=== PATIENT | male | born 1975 | race Caucasian/White ===

== ENCOUNTER 2021-07-15 19:44 | Inpatient (IN) | payer MEDICAID, SELFPAY ==
[2021-07-15] VITALS (9 sets, daily range): BP systolic 167–198; BP diastolic 107–120; PULSE 112–127; RESP 21–29; TEMP 36.9–39.1; O2SAT 94–97; BMI 22.5; BMI 24.1
--- NOTE | 2021-07-15 20:32 | ECG_ITS ---
APPROVED REPORT Exam: Resting ECG HR:121 bpm ECG Measurements Heart Rate 121 AXES IA 118 P 61 QRSd 100 QRS 9 QT 330 T 133 QTc 468 Conclusion Sinus tachycardia with occasional premature ventricular complexes Possible Left atrial enlargement T wave abnormality, consider lateral ischemia Abnormal ECG Electronically signed by : Hector Ngo MD 07/16/2021 08:31:27
--- NOTE | 2021-07-15 20:33 | XR_ITS ---
PROCEDURE INFORMATION: Exam: XR Chest Exam date and time: 07/15/2021 8:33 PM Age: 46 years old Clinical indication: Shortness of breath and other: Chest pain and SOB; Additional info: Cp with SOA TECHNIQUE: Imaging protocol: XR of the chest. Views: 2 views. COMPARISON: No relevant prior studies available. FINDINGS: Lungs: Central opacities with peribronchial cuffing, seen to advantage on the lateral chest radiograph suggest viral process versus reactive airways without convincing consolidation. Pleural spaces: Unremarkable. No pleural effusion. No pneumothorax. Heart/Mediastinum: Unremarkable. No cardiomegaly. Vasculature: LAD stents overlie the cardiac silhouette. Bones/joints: Unremarkable. IMPRESSION: Central opacities with peribronchial cuffing, seen to advantage on the lateral chest radiograph suggest viral process versus reactive airways without convincing consolidation.
[2021-07-15 20:45] LABS: Chloride 98 mmol/L (98-107)
[2021-07-15 20:46] LABS: Potassium 4.1 mmoL/L (3.5-5.1); Sodium 133 mmol/L (136-145)
[2021-07-15 20:47] LABS: Influenza A, PCR Not Detected (NotDetected); Influenza B, PCR Not Detected (NotDetected)
[2021-07-15 20:48] LABS: Blood Urea Nitrogen 25 mg/dl (9-20); Creatinine Clearance Estimated 56 mL/min (50-200); Estimated Glomerular Filt Rate 38 ml/min (>60); GFR (African American) 46 ML/MIN (>60)
[2021-07-15 20:49] LABS: Anion Gap 9.1 mEq/L (5-15); Carbon Dioxide 30 mmol/L (22.0-30.0); Glucose 128 mg/dl (74-100)
--- NOTE | 2021-07-15 20:50 | PC.NURSE ---
notified of GFR and inability to have CTA PE
[2021-07-15 20:52] LABS: Basophils # 0.1 K/mm3 (0-0.2); Basophils % 1.2 % (0.1-2.0); Eosinophils % 0.2 % (0.1-12.0); Hematocrit 29.8 % (42.0-52.0); Hemoglobin 9.8 g/dL (14.1-18.0); Lymphocytes # 1.1 K/mm3 (0.7-4.5); Lymphocytes % 16.3 % (10-50); Mean Corpuscular HGB Conc 32.8 g/dL (31.8-35.4); Mean Corpuscular Hemoglobin 28.6 pg (27.0-31.2); Mean Corpuscular Volume 87.2 fl (80-94); Mean Platelet Volume 9.8 fl (7.4-10.4); Monocytes # 0.8 K/mm3 (0.1-1.0); Monocytes % 11.5 % (1.7-9.3); Neutrophils % 70.8 % (37.0-80.0); Platelet Count 223 K/mm3 (142-424); Red Blood Count 3.42 M/mm3 (4.60-6.20); Red Cell Distribution Width 15.4 % (11.5-17.5)
[2021-07-15 20:59] LABS: NT Pro Brain Natriuretic Pep. 9640 pg/mL (0-125)
[2021-07-15 21:09] LABS: Troponin I 0.32 ng/ml (0.00-0.034)
--- NOTE | 2021-07-15 21:09 | PC.NURSE ---
notified of critical troponin
[2021-07-15 21:24] LABS: Coronavirus 19, PCR Detected (NotDetected)
--- NOTE | 2021-07-15 21:48 | PC.NURSE ---
MD Rizo would like a 2hr troponin.
--- NOTE | 2021-07-15 21:57 | PC.NURSE ---
family calling for an update- Josefa Jackson, pt states it is ok to update her.
[2021-07-15 22:37] LABS: Troponin I 0.34 ng/ml (0.00-0.034)
--- NOTE | 2021-07-15 23:20 | PC.NURSE ---
lime supervisor notified for the need bed assignment.
--- NOTE | 2021-07-15 23:58 | PC.NURSE ---
patient up to floor via wheel chair at this time.
[2021-07-16] VITALS (13 sets, daily range): BP systolic 133–167; BP diastolic 78–92; PULSE 74–113; RESP 16–22; TEMP 36.6–37.8; O2SAT 92–100; BMI 24.1
--- NOTE | 2021-07-16 01:10 | HMH.EDGENADL ---
ED Disposition Clinical Impression: COVID, Acute dyspnea, KAREN (acute kidney injury) Chest pain Qualifiers: Chest pain type: unspecified Qualified Code(s): R07.9 - Chest pain, unspecified Disposition: Admitted As Inpatient Condition on Discharge: Fair - Critical Care Critical Care Time: No Attestation: On 07/15/21, the high probability of a clinically significant, sudden or life threatening deterioration of the following system(s) required my full and direct attention, intervention and personal management. The time I documented below is in addition to time spent performing reported procedures but includes the following listed in this critical care notation. Medical Decision Making - Medical Records Medical records reviewed: Yes: I reviewed the patient's medical records. - Jose Alberto Inquiry Pt receiving controlled substance: No Vital Signs: 07/15/21 19:46 07/15/21 20:30 07/15/21 21:00 Temperature 98.4 F Temperature Source Oral Pulse Rate 121 H 120 H Pulse Rate [Right] 127 H Respiratory Rate 29 H 22 23 Blood Pressure 195/118 H 195/116 H Blood Pressure [Right Arm] 198/112 H Blood Pressure Mean Blood Pressure Mean [Right Arm] 140 Blood Pressure Source Manual Cuff/ Auscultation Blood Pressure Source [Right Arm] Automatic Cuff 02 Sat by Pulse Oximetry 96 94 L 97 Oxygen Delivery Method Room Air Room Air Room Air 07/15/21 21:30 07/15/21 22:00 07/15/21 22:38 Temperature Temperature Source Pulse Rate 121 H 116 H 118 H Pulse Rate [Right] Respiratory Rate 24 25 H 25 H Blood Pressure 196/119 H 196/118 H 177/112 H Blood Pressure [Right Arm] Blood Pressure Mean 137 133 Blood Pressure Mean [Right Arm] Blood Pressure Source Blood Pressure Source [Right Arm] 02 Sat by Pulse Oximetry 94 L 96 95 Oxygen Delivery Method Room Air Room Air Room Air 07/15/21 23:00 07/15/21 23:30 07/15/21 23:37 Temperature 102.3 F H Temperature Source Oral Pulse Rate 117 H 115 H 112 H Pulse Rate [Right] Respiratory Rate 26 H 21 21 Blood Pressure 188/120 H 177/110 H 167/107 H Blood Pressure [Right Arm] Blood Pressure Mean Blood Pressure Mean [Right Arm] Blood Pressure Source Blood Pressure Source [Right Arm] 02 Sat by Pulse Oximetry 94 L 95 Oxygen Delivery Method Room Air Room Air Room Air - Lab Data Lab results reviewed: Yes: I reviewed the patient's lab results. Lab Results 07/15/21 19:56: WBC 7.0, RBC 3.42 L, Hgb 9.8 L, Hct 29.8 L, MCV 87.2, MCH 28.6, MCHC 32.8, RDW 15.4, Plt Count 223, MPV 9.8, Neut % (Auto) 70.8, Lymph % (Auto) 16.3, [facility] % (Auto) 11.5 H, Eos % (Auto) 0.2, Baso % (Auto) 1.2, Neut # (Auto) 5.0, Lymph # (Auto) 1.1, [facility] # (Auto) 0.8, Eos # (Auto) 0.0, Baso # (Auto) 0.1 07/15/21 19:56: Sodium 133 L, Potassium 4.1, Chloride 98, Carbon Dioxide 30, Anion Gap 9.1, BUN 25 H, Creatinine 1.90 H, Estimated Creat Clear 56, Estimated GFR 38 L, Est GFR ( Amer) 46 L, Glucose 128 H, Calcium 8.0 L, Troponin I 0.32 H, NT-Pro-B Natriuret Pep 9640 H 07/15/21 20:07: SARS-CoV-2 (PCR) Detected A, Influenza A Untype (PCR) Not detected, Influenza Type B (PCR) Not detected 07/15/21 22:07: Troponin I 0.34 H Result diagrams: 07/15/21 19:56 07/15/21 19:56 Orders (Tests/Meds): ED MEDICATIONS Generic Name Dose Route Start Last Admin Trade Name Jelena PRN Reason Stop Dose Admin Aspirin 81 mg 07/16/21 09:00 Aspirin 81mg Chewable Tablet PO 08/15/21 08:59 DAILY JULIAN Furosemide 40 mg 07/16/21 09:00 Furosemide 40 Mg Tablet PO 08/15/21 08:59 BID JULIAN Gabapentin 600 mg 07/16/21 09:00 Gabapentin 300mg Capsule PO 08/15/21 08:59 TID JULIAN Insulin Glargine 50 unit 07/16/21 21:00 Insulin Glargine 100 Units/Ml 3ml Flexpen SQ 08/15/21 20:59 HS JULIAN Isosorbide Mononitrate 60 mg 07/16/21 09:00 Isosorbide [facility] 60mg Tab.Er.24h PO 08/15/21 08:59 DAILY JULIAN Loratadine 10 mg 07/16/21 09:00 Loratadine 10mg Tablet PO
--- NOTE | 2021-07-16 06:18 | PC.NURSE ---
Upon pt arriving to floor, this RN was made aware of pt temp in ER of 102.3 and was administered 1g Tylenol with favorable results. Pt temp rechecked and was 99.0. Pt 0400 temp was 100.0. Room temp was turned down and extra blankets were taken off. After 1 hour, temp was retaken and was 98.5. Pt tolerating RA with sats in mid 90s. 2+ edema noted to bilateral feet. Pillow was placed underneath to elevate. No complaints voiced to staff. Pt has rested well since arriving to floor.
[2021-07-16 07:25] LABS: Basophils # 0.1 K/mm3 (0-0.2); Eosinophils % 0.1 % (0.1-12.0); Hematocrit 35.3 % (42.0-52.0); Lymphocytes # 1.8 K/mm3 (0.7-4.5); Lymphocytes % 26.5 % (10-50); Mean Corpuscular HGB Conc 33.6 g/dL (31.8-35.4); Mean Corpuscular Hemoglobin 28.1 pg (27.0-31.2); Mean Corpuscular Volume 83.7 fl (80-94); Mean Platelet Volume 9.7 fl (7.4-10.4); Monocytes # 0.7 K/mm3 (0.1-1.0); Monocytes % 10.8 % (1.7-9.3); Neutrophils # 4.1 K/mm3 (1.8-7.8); Neutrophils % 61.5 % (37.0-80.0); Platelet Count 246 K/mm3 (142-424); Red Blood Count 4.22 M/mm3 (4.60-6.20); Red Cell Distribution Width 15.2 % (11.5-17.5); White Blood Count 6.6 K/mm3 (4.8-10.8)
[2021-07-16 07:43] LABS: Alanine Aminotransferase 21 U/L (12-78); Albumin Level 2.5 g/dl (3.5-5.0); Albumin/Globulin Ratio 0.8 (1.1-1.8); Alkaline Phosphatase 116 U/L (38-126); Anion Gap 6.5 mEq/L (5-15); Aspartate Amino Transferase 54 U/L (17-59); Bilirubin,Total 0.2 mg/dl (0.2-1.3); Blood Urea Nitrogen 26 mg/dl (9-20); Calcium 8.4 mg/dl (8.4-10.2); Carbon Dioxide 28 mmol/L (22.0-30.0); Chloride 102 mmol/L (98-107); Creatinine Clearance Estimated 68 mL/min (50-200); Estimated Glomerular Filt Rate 43 ml/min (>60); GFR (African American) 52 ML/MIN (>60); Glucose 142 mg/dl (74-100); Potassium 3.5 mmoL/L (3.5-5.1); Sodium 133 mmol/L (136-145); Total Protein,Serum 5.5 g/dl (6.3-8.2)
[2021-07-16 07:45] LABS: Hemoglobin 11.7 g/dL (14.1-18.0)
[2021-07-16 08:37] LABS: Troponin I 0.47 ng/ml (0.00-0.034)
--- NOTE | 2021-07-16 08:41 | HMH.HP ---
*Admission Date: 07/16/21 *Chief complaint: Weakness *History of present illness: Butch is a 46-year-old white male with a history of coronary artery disease, congestive heart failure, hypertension, and diabetes mellitus. His PCP is Dr. Estrada as his PCP and Dr. Palacios as his community integration specialist. States he has 20 coronary stents with 4 stents being placed as recently as 3 months ago. He presented to the emergency room last evening with complaints of chest pain and shortness of breath. This morning he tells me he came to the hospital because of a 2-day history of increasing malaise, generalized weakness, and cough. The chest pain he had last evening was not typical of angina he has had in the past. On work-up in the emergency room, he was found to be Covid positive with a normal white count. His chest x-ray showed some peribronchial cuffing consistent with a viral process. O2 sats 100% on room air. In addition his cardiac enzymes were mildly elevated x2 without significant delta. His creatinine was also found to be elevated at 1.9. He apparently has no history of chronic kidney disease. He has had no recent vomiting or diarrhea but appetite has been diminished. He denies any sick contacts. [facility] History Medical History: Reports:: Congestive Heart Failure, Coronary Artery Disease, Hypertension *Have you ever received a pneumonia vaccine?: No *Have you received a flu vaccine this season?: No Other Medical History: Other Surgeries: Yes: Angioplasty (Most recently 3 months ago), Other (Vasectomy, amputation of left third toe) Amputation: Yes (left middle toe) - *Social History Last grade of school completed: 11th or 12th Smoking Status: Never smoker Alcohol Intake: never *Occupational Status:: unemployed Household Members: children *Travel in the last 8 weeks: None - Psychiatric History Pschychiatric History:: Family Hx:: No significant family history Review of Systems - Constitutional Reports lack of energy, Reports weakness - Eyes Denies blurry vision, Denies loss of vision - ENT Denies abnormal hearing, Denies dizziness, Denies nasal congestion - *Cardiovascular Reports chest pain, Reports shortness of breath - *Respiratory Reports cough, Reports shortness of breath, Denies coughing up blood - *Gastrointestinal Denies abdominal pain, Denies change in stools, Denies nausea, Denies vomiting - *Genitourinary Denies difficulty urinating, Denies urinary frequency - *Musculoskeletal Denies joint swelling, Denies body aches - Integumentary/Breasts Denies change in skin color, Denies yellowing of the skin - *Neurologic Reports headache(s), Denies dizziness - Psychiatric Denies confusion, Denies depression - Endocrine Denies excessive sweating, Denies increased urination - Hematologic/Lymphatic Denies easy bruising - Allergic/Immunologic Denies itchy eyes, Denies wheezing Meds Home Medications Medication Instructions Recorded Confirmed Type Aspirin [Aspirin 81mg chewable 81 mg PO DAILY 07/15/21 07/15/21 History tab] Ezetimibe [Zetia] 10 mg PO DAILY 07/15/21 07/15/21 History Furosemide [Furosemide 40MG tAB*] 40 mg PO BIDL 07/15/21 07/16/21 History Insulin Glargine,Hum.rec.anlog 50 units SQ HS 07/15/21 07/15/21 History [Lantus Solostar 100 Units/mL 3mL flexpen] Isosorbide Mononitrate [Isosorbide 60 mg PO DAILY 07/15/21 07/15/21 History Mononitrate ER] Loratadine [Allergy] 10 mg PO DAILY 07/15/21 07/15/21 History Metformin HCl [Metformin 1000mg 1,000 mg PO BID 07/15/21 07/15/21 History Tablets] Metoprolol Succinate [Metoprolol 100 mg PO DAILY 07/15/21 07/15/21 History Succinate 100mg Tablet*] Nitroglycerin [Nitrostat 0.4mg SL 0.4 mg SL NEEDED PRN 07/15/21 07/15/21 History Tablet] Rosuvastatin Calcium [Crestor 40mg 40 mg PO DAILY 07/15/21 07/15/21 History Tablets] Ticagrelor [Brilinta 90mg 90 mg PO BID 07/15/21 07/15/21 History Tablet] Gabapentin [Neur
--- NOTE | 2021-07-16 08:41 | PC.NURSE ---
reported troponin to
--- NOTE | 2021-07-16 09:11 | P.CONPHA_ITS ---
[facility] Pharmacy VTE Monitoring - Patient Demographics Admission date: 07/15/21 Report Date: 07/16/21 Time: 09:11 Allergies/Adverse Reactions: Patient Allergies No Known Allergies Allergy (Verified 07/15/21 19:55) Height: 1.93 m Weight: 90.045 kg Patient Problems: Current Active Problems COVID (Acute) Chest pain (Acute) Acute dyspnea (Acute) KAREN (acute kidney injury) (Acute) - VTE Risk Labs: VTE Related Lab Results Hgb 11.7 g/dL (14.1-18.0) L D 07/16/21 07:00 Hct 35.3 % (42.0-52.0) L 07/16/21 07:00 Plt Count 246 K/mm3 (142-424) 07/16/21 07:00 BUN 26 mg/dl (9-20) H 07/16/21 07:00 Creatinine 1.70 mg/dl (0.66-1.25) H 07/16/21 07:00 Estimated Creat Clear 68 mL/min (50-200) 07/16/21 07:00 Was VTE Risk Assessment Performed: No Clinical Trial Participant: No - Prophylaxis VTE Prophylaxis Ordered?: Yes Types of VTE Prophylaxis: TEDS Knee High, Pharmacological Location of Applied Device: Bilateral Lower Extremeties Pharmacologic Type: Enoxaparin
--- NOTE | 2021-07-16 09:19 | HMH.PHAINT ---
MEDICATION RECONCILIATION COMPLETE USING EXTERNAL PHARMACY FILL HISTORY.
[2021-07-16 21:15] LABS: POC Glucose,Bedside 167 (70-110)
[2021-07-17] VITALS (8 sets, daily range): BP systolic 137–168; BP diastolic 73–99; PULSE 51–100; RESP 16–18; TEMP 36.4–37.7; O2SAT 94–99; BMI 24.1
--- NOTE | 2021-07-17 03:46 | PC.NURSE ---
MD Baugh notified that pt meets criteria for sepsis due to new placement of Bipap. No new orders at time. Pt is currently resting in bed. She is tolerating Bipap. Will continue to monitor.
[2021-07-17 06:52] LABS: POC Glucose,Bedside 103 (70-110)
--- NOTE | 2021-07-17 06:57 | PC.NURSE ---
pt a&ox4. remains on RA. c/o SOA after ambulating to the bathroom. requested PRN breathing treatment. reports it was effective. c/o pain in lower abdomen that was a [address] Baugh gave an order for Toradol 15mg IV once. upon reassessment pt reports decreased pain and that he was able to rest.
--- NOTE | 2021-07-17 08:21 | CA_ITS ---
APPROVED REPORT EXAM: Comprehensive 2D, Doppler, and color-flow Echocardiogram Window Cutter: Keiry Craven RVT Ht: 6 ft 3 in Wt: 198lbs BSA: 2.18 BP: 000/00 mmHg Indications: COVID,CAD,ELEVATED TROP. CHF,DM,HTN,SOA,CP 2D Dimensions LVOT 2.20 cm (M/F) 1.5-2.5 LA Volume 61.90 mL LA Volume Index 28.39 mL/m2 (M/F) 16-34 M-Mode Dimensions RVDd 3.00 cm (0.9-2.6) LA Diam 3.96 cm (1.9-4.0) LVDd 5.35 cm (3.5-5.7) Ao Diam 3.34 cm (2.0-3.7) LVDs 4.05 cm (3.5-5.7) IVSd 0.98 cm (0.6-1.1) PWd 1.03 cm (0.6-1.1) EF (Teich) 47.90% FS 24.30% EDV (Teich) 138.30 mL TAPSE 1.61 (<1.7) ESV (Teich) 72.10 mL LV Diastology E Decel Time 150.00 (160-240 msec) E/A Ratio 1.7 MED E' 5.40 (< 7 cm/sec) E'/MED E' Ratio 15.26 (>14) LAT E' 10.50 (<10 cm/sec) E/LAT E' Ratio 7.85 (>14) Mitral Valve MV E Max Tony. 82.00 (40-130 cm/s) MV A Velocity 49.00 (40-130 cm/s) E/A Ratio 1.69 MV Decel. Time 150.00 (160-240 ms) MV PHT 44.00 ms Pulmonary Valve PV Peak Velocity 91.00 (50-150 cm/s) Tricuspid Valve TR P. Velocity 210.00 cm/s RAP Estimate 10.00 mmHg RVSP 27.60 mmHg Left Ventricle Left atrium is mildly enlarged, left ventricle is normal size, moderate concentric left ventricular hypertrophy, visually estimated ejection fraction 30%, left ventricle is globally hypokinetic. Diastolic parameters are inconclusive. Right Ventricle Right atrium right ventricle mildly enlarged with normal contractility. Aortic Valve Aortic valve is minimally thickened and fibrosed, there is no aortic stenosis or aortic insufficiency. Mitral Valve Mitral valve is grossly normal, there is trace mitral regurgitation. Tricuspid Valve Tricuspid valve grossly normal, there is trace tricuspid regurgitation, tricuspid regurgitation jet velocity is inadequate for calculation of the right ventricular systolic pressure. Pulmonic Valve Pulmonic valve is poorly visualized. Great Vessels Aortic root is normal size. Inferior vena cava normal size with normal inspiratory collapse. Pericardium No significant pericardial effusion noted. Conclusion 1. Mildly enlarged left atrium, normal left ventricular size, moderate concentric left ventricular hypertrophy, visually estimated ejection fraction 30% with left ventricle is globally hypokinetic, diastolic parameters are inconclusive. 2. Trace mitral and tricuspid regurgitation. 3. No significant pericardial effusion noted. 4. Inferior vena cava is normal size with normal inspiratory collapse. Electronically signed by : Germain Mckeon MD 07/17/2021 19:56:11
[2021-07-17 08:27] LABS: Chloride 98 mmol/L (98-107); Sodium 136 mmol/L (136-145)
[2021-07-17 08:28] LABS: Potassium 3.4 mmoL/L (3.5-5.1)
[2021-07-17 08:30] LABS: Anion Gap 8.4 mEq/L (5-15); Blood Urea Nitrogen 31 mg/dl (9-20); Carbon Dioxide 33 mmol/L (22.0-30.0); Creatinine Clearance Estimated 64 mL/min (50-200); Estimated Glomerular Filt Rate 40 ml/min (>60); GFR (African American) 49 ML/MIN (>60)
[2021-07-17 08:31] LABS: Calcium 7.9 mg/dl (8.4-10.2); Glucose 120 mg/dl (74-100)
--- NOTE | 2021-07-17 08:33 | HMH.CNCARD ---
History of Present Illness Consult date: 07/17/21 Requesting physician: Travis Baugh Consult reason: shortness of breath Chief complaint: COVID, elevated troponin, CAD Additional Medical History:: 1. Coronary artery disease A. History of 20 stents over the past several years with most recent LHC approximately [address] Simone Calzada with no stent. B. Ischemic cardiomyopathy with ejection fraction around 35% per Dr. Calzada, at the time of the cardiac cath 3 months ago. C. History of congestive heart failure 2. Hypertension 3. Hyperlipidemia 4. Covid, 07/2021 5. Diabetes mellitus, type II A. Insulin therapy at night History of present illness: Butch is a 46-year-old white male with a history of coronary artery disease, congestive heart failure, hypertension, and diabetes mellitus. His PCP is Dr. Estrada as his PCP and Dr. Palacios as his sliver former. States he has 20 coronary stents with 4 stents being placed as recently as 3 months ago. He presented to the emergency room last evening with complaints of chest pain and shortness of breath. This morning he tells me he came to the hospital because of a 2-day history of increasing malaise, generalized weakness, and cough. The chest pain he had last evening was not typical of angina he has had in the past. On work-up in the emergency room, he was found to be Covid positive with a normal white count. His chest x-ray showed some peribronchial cuffing consistent with a viral process. O2 sats 100% on room air. In addition his cardiac enzymes were mildly elevated x2 without significant delta. His creatinine was also found to be elevated at 1.9. He apparently has no history of chronic kidney disease. He has had no recent vomiting or diarrhea but appetite has been diminished. He denies any sick contacts. The above per Dr. Baugh Patient relates being brought to the hospital at the insistence of family members due to lower extremity edema along with some fatigue. He denies any significant chest pain reminiscent of prior angina. He does relate recent cardiac cath approximately 3 months ago and thought that he had stents placed, however after speaking with his sliver former Dr. Calzada there were no stents placed due to an occlusion of a chronic problematic vessel with history of multiple stents in that vessel. Patient's ejection fraction is around 35% which is consistent with our preliminary echo here. Dr. Calzada states that the patient runs a chronic mildly elevated troponin in the 0.2-0.4 range which is also consistent with what we have here. Overall cardiac status seems to be stable. No plans to proceed with further work-up at this time. [facility] History Medical History: Reports:: Congestive Heart Failure, Coronary Artery Disease, Hypertension *Have you ever received a pneumonia vaccine?: No *Have you received a flu vaccine this season?: No Other Medical History: Other Surgeries: Yes: Angioplasty (Most recently 3 months ago), Other (Vasectomy, amputation of left third toe) Amputation: Yes (left middle toe) - *Social History Last grade of school completed: 11th or 12th Smoking Status: Never smoker Alcohol Intake: never *Occupational Status:: unemployed Household Members: children *Travel in the last 8 weeks: None - Psychiatric History Pschychiatric History:: Family Hx:: No significant family history Meds Home Medications Medication Instructions Recorded Confirmed Type Aspirin [Aspirin 81mg chewable 81 mg PO DAILY 07/15/21 07/15/21 History tab] Ezetimibe [Zetia] 10 mg PO DAILY 07/15/21 07/15/21 History Furosemide [Furosemide 40MG tAB*] 40 mg PO BIDL 07/15/21 07/16/21 History Insulin Glargine,Hum.rec.anlog 50 units SQ HS 07/15/21 07/15/21 History [Lantus Solostar 100 Units/mL 3mL flexpen] Isosorbide Mononitrate [Isosorbide 60 mg PO DAILY 07/15/21 07/15/21 History Mononitrate ER] Loratadine [Allergy] 10 mg PO DAILY 07/15/21 07/15/21 Hi
[2021-07-17 08:36] LABS: C-Reactive Protein 39.7 mg/L (0-4)
[2021-07-17 09:06] LABS: Ferritin 604 ng/ml (17.9-464)
--- NOTE | 2021-07-17 12:08 | HMH.ACPN2 ---
<Pauline Campbell - Last Filed: 07/17/21 12:08> Internal Medicine - PN: Subj *Date: 07/17/21 *Time: 12:08 Interval history: Pt is sitting up to the side of the bed eating lunch. He denies any pain or nausea. He has continued with loose stools. He denies any SOB at this time. Exam Vital signs and Labs for Last 24 Hours: Temp Pulse Resp BP Pulse Ox 97.5 F L 92 H 16 137/92 H 99 07/17/21 11:13 07/17/21 11:13 07/17/21 11:13 07/17/21 11:13 07/17/21 11:13 Laboratory Results - last 24 hr 07/16/21 20:58: POC Glucose 167 H 07/17/21 06:00: Sodium 136, Potassium 3.4 L, Chloride 98, Carbon Dioxide 33 H, Anion Gap 8.4, BUN 31 H, Creatinine 1.80 H, Estimated Creat Clear 64, Estimated GFR 40 L, Est GFR ( Amer) 49 L, Glucose 120 H, Calcium 7.9 L, Ferritin 604 H, C-Reactive Protein 39.7 H 07/17/21 06:32: POC Glucose 103 I & O for Last 24 hours: Intake & Output 07/15/21 07/16/21 07/17/21 07/18/21 11:59 11:59 11:59 11:59 Intake Total 1240 / 1240 720 / 720 Balance 1240 / 1240 720 / 720 Weight 198 lb 8.244 oz 198 lb 6.656 oz - Constitutional no acute distress - *Routine HEENT Exam Head: Present: normocephalic ENT: Present: mucous membranes moist - *Routine Respiratory Exam Comments: generally diminished with rhonchi and bibasilar rales - *Routine Cardiovascular Exam Present: irregularly irregular - *Routine Abdominal Exam Present: soft, normoactive bowel sounds. Absent: tenderness, distended, obese - *Routine Extremities Exam Present: full ROM, pulses intact, extremity cold to touch. Absent: calf tenderness Comments: 1+ BLE edema - *Routine Neurological Exam Present: alert, oriented X3, moving all extremities, normal speech Assessment and Plan (1) COVID Status: Acute Category: Medical Code(s): U07.1 - COVID-19 (2) Chest pain Status: Acute Qualifiers: Chest pain type: unspecified Qualified Code(s): R07.9 - Chest pain, unspecified Category: Medical Code(s): R07.9 - Chest pain, unspecified (3) Acute renal insufficiency Status: Acute Category: Medical Code(s): N28.9 - Disorder of kidney and ureter, unspecified (4) ASCVD (arteriosclerotic cardiovascular disease) Status: Acute Category: Medical Code(s): I25.10 - Atherosclerotic heart disease of [place] coronary artery without angina pectoris (5) Elevated troponin level not due to acute coronary syndrome Status: Acute Category: Medical Code(s): R77.8 - Other specified abnormalities of plasma proteins (6) Diabetes mellitus type 2 in nonobese Status: Acute Category: Medical Code(s): E11.9 - Type 2 diabetes mellitus without complications - Assessment and plan all Dx Assessment and Plan for all problems:: Cardiology note seen and appreciated. Further per Dr. Baugh. <Travis Baugh - Last Filed: 07/17/21 17:10> Internal Medicine - PN: Subj *Date: 07/17/21 *Time: 17:08 Exam Vital signs and Labs for Last 24 Hours: Temp Pulse Resp BP Pulse Ox 99.9 F H 93 H 18 160/91 H 94 L 07/17/21 15:21 07/17/21 15:21 07/17/21 15:21 07/17/21 15:21 07/17/21 15:21 Laboratory Results - last 24 hr 07/16/21 20:58: POC Glucose 167 H 07/17/21 06:00: Sodium 136, Potassium 3.4 L, Chloride 98, Carbon Dioxide 33 H, Anion Gap 8.4, BUN 31 H, Creatinine 1.80 H, Estimated Creat Clear 64, Estimated GFR 40 L, Est GFR ( Amer) 49 L, Glucose 120 H, Calcium 7.9 L, Ferritin 604 H, C-Reactive Protein 39.7 H 07/17/21 06:32: POC Glucose 103 I & O for Last 24 hours: Intake & Output 07/15/21 07/16/21 07/17/21 07/18/21 11:59 11:59 11:59 11:59 Intake Total 1240 / 1240 720 / 720 360 / 360 Output Total 850 / 850 Balance 1240 / 1240 720 / 720 -490 / -490 Weight 198 lb 8.244 oz 198 lb 6.656 oz Assessment and Plan (1) COVID Status: Acute Category: Medical Code(s): U07.1 - COVID-19 (2) Chest pain Status: Acute Qualifiers: Chest pain type: unsp
--- NOTE | 2021-07-17 18:09 | PC.NURSE ---
Patient is NSR on the monitor and on room air. Patient is up ad-bee. Alert and oriented times 4. Bed in lowest position and phone and call light in reach. Will continue to monitor.
[2021-07-17 22:21] LABS: POC Glucose,Bedside 143 (70-110)
[2021-07-17 23:49] LABS: Adenovirus F 40/41, stool Not Detected (NotDetected); Astrovirus Not Detected (NotDetected); Campylobacter Not Detected (NotDetected); Clostridium Difficile A/B, PCR Not Detected (NotDetected); Cryptosporidium Not Detected (NotDetected); Cyclospora Cayetanesis Not Detected (NotDetected); Entamoeba histolytica Not Detected (NotDetected); Enterotoxigenic E coli Not Detected (NotDetected); Giardia lamblia Not Detected (NotDetected); Norovirus Not Detected (NotDetected); Plesimonas Shigalloides, PCR Not Detected (NotDetected); Rotavirus A Not Detected (NotDetected); Salmonella, PCR Not Detected (NotDetected); Sapovirus Not Detected (NotDetected); Shiga-like toxin E coli Not Detected (NotDetected); Shigella Enterovasive E coli Not Detected (NotDetected); Vibrio Cholerae Not Detected (NotDetected); Vibrio, PCR Not Detected (NotDetected); Yersinia Entercolitica, PCR Not Detected (NotDetected)
[2021-07-17 23:55] LABS: Occult Blood,Stool Negative (Negative)
[2021-07-18] VITALS (9 sets, daily range): BP systolic 122–172; BP diastolic 76–92; PULSE 62–100; RESP 17–22; TEMP 36.6–37.1; O2SAT 92–99; BMI 23.5
[2021-07-18 02:42] LABS: Enteroaggregative E coli Detected (NotDetected)
[2021-07-18 02:43] LABS: Enteropathogenic E coli Detected (NotDetected)
--- NOTE | 2021-07-18 03:08 | PC.NURSE ---
0242 Yolette from lab called to report a positive PCR stool of Enteropathogenic E.coli and Enteroaggregative E. coli. Name, , and result verified x2.
--- NOTE | 2021-07-18 03:16 | PC.NURSE ---
Patient has had complaints of numerous diarrhea episodes throughout the day and this RN's shift. Diarrhea Panel and occult stool was ordered results called to MD international nurse at 0316. No new orders received. Patient has rested on and off this shift, patient currently resting at this time [id number]
--- NOTE | 2021-07-18 08:36 | HMH.ACPN2 ---
<Pauline Campbell - Last Filed: 07/18/21 08:36> Internal Medicine - PN: Subj *Date: 07/18/21 *Time: 08:36 Interval history: Pt arouses easily to voice. He reports he slept well and has no complaint this morning. He has continued with loose stools. No further abdominal cramping. Exam Vital signs and Labs for Last 24 Hours: Temp Pulse Resp BP Pulse Ox 98.2 F 62 17 172/91 H 92 L 07/18/21 07:40 07/18/21 07:40 07/18/21 07:40 07/18/21 07:40 07/18/21 07:40 Laboratory Results - last 24 hr 07/17/21 06:00: Ferritin 604 H, C-Reactive Protein 39.7 H 07/17/21 21:09: POC Glucose 143 H 07/17/21 23:44: Stl Aeromonas (PCR) Not detected, Stl C. cayetanensis PCR Not detected, Stool Rotavirus (PCR) Not detected, Stl Adenov F 40/41 PCR Not detected, Stool Astrovirus (PCR) Not detected, Stool Campylobacter PCR Not detected, Stl C.difficile Tox PCR Not detected, Stool Cryptosporidium PCR Not detected, Stl E.coli Shiga Tox PCR Not detected, Stool E coli O157 PCR Not detected, Stl Enterotoxigenic E PCR Not detected, Stool EPEC (PCR) Detected A, Stool EAEC (PCR) Detected A, Stl E. histolytica PCR Not detected, Stool Giardia Lamblia PCR Not detected, Stool Salmonella PCR Not detected, Stool Sapovirus (PCR) Not detected, Stl P. shigelloides PCR Not detected, Stl Shigella/EIEC PCR Not detected, St Y.enterocolitica PCR Not detected, Stool Vibrio (PCR) Not detected, Stl Vibrio cholerae PCR Not detected, Stl Norovirus GI/GII PCR Not detected 07/17/21 23:47: Stool Occult Blood Negative I & O for Last 24 hours: Intake & Output 07/15/21 07/16/21 07/17/21 07/18/21 11:59 11:59 11:59 11:59 Intake Total 1240 / 1240 720 / 720 600 / 600 Output Total 850 / 850 Balance 1240 / 1240 720 / 720 -250 / -250 Weight 198 lb 8.244 oz 198 lb 6.656 oz 193 lb 1 oz - Constitutional no acute distress - *Routine HEENT Exam Head: Present: normocephalic ENT: Present: mucous membranes moist - *Routine Respiratory Exam Absent: respiratory distress Comments: good air movement with rhonchi and wheezes throughout - *Routine Cardiovascular Exam Present: irregularly irregular - *Routine Abdominal Exam Present: soft, normoactive bowel sounds. Absent: tenderness, distended, obese - *Routine Extremities Exam Present: full ROM, pulses intact, extremity cold to touch. Absent: calf tenderness Comments: trace BLE edema improved from yesterday's exam - *Routine Neurological Exam Present: alert, oriented X3, moving all extremities Assessment and Plan (1) COVID Status: Acute Category: Medical Code(s): U07.1 - COVID-19 (2) Chest pain Status: Acute Qualifiers: Chest pain type: unspecified Qualified Code(s): R07.9 - Chest pain, unspecified Category: Medical Code(s): R07.9 - Chest pain, unspecified (3) Acute renal insufficiency Status: Acute Category: Medical Code(s): N28.9 - Disorder of kidney and ureter, unspecified (4) ASCVD (arteriosclerotic cardiovascular disease) Status: Acute Category: Medical Code(s): I25.10 - Atherosclerotic heart disease of [place] coronary artery without angina pectoris (5) Elevated troponin level not due to acute coronary syndrome Status: Acute Category: Medical Code(s): R77.8 - Other specified abnormalities of plasma proteins (6) Diabetes mellitus type 2 in nonobese Status: Acute Category: Medical Code(s): E11.9 - Type 2 diabetes mellitus without complications - Assessment and plan all Dx Assessment and Plan for all problems:: Further per Dr. Baugh. <Travis Baugh - Last Filed: 07/18/21 18:28> Internal Medicine - PN: Subj *Date: 07/18/21 *Time: 18:26 Exam Vital signs and Labs for Last 24 Hours: Temp Pulse Resp BP Pulse Ox 98.1 F 80 18 124/80 99 07/18/21 16:00 07/18/21 16:00 07/18/21 16:00 07/18/21 16:00 07/18/21 16:00 Laboratory Results - last 24 hr 07/17/21 21:09: POC Glucose 143 H 07/17/21 23:44: Stl Aeromonas (PC
--- NOTE | 2021-07-18 08:43 | HMH.PNCARD ---
Subjective Date: 07/18/21 Time: 08:43 Principal diagnosis: COVID, elevated troponin, CAD Interval history: 46 yo WM in bed in NAD. No complaints overnight. Exam Vital signs and Labs for Last 24 Hours: Temp Pulse Resp BP Pulse Ox 98.2 F 62 17 172/91 H 92 L 07/18/21 07:40 07/18/21 07:40 07/18/21 07:40 07/18/21 07:40 07/18/21 07:40 Laboratory Results - last 24 hr 07/17/21 06:00: Ferritin 604 H 07/17/21 21:09: POC Glucose 143 H 07/17/21 23:44: Stl Aeromonas (PCR) Not detected, Stl C. cayetanensis PCR Not detected, Stool Rotavirus (PCR) Not detected, Stl Adenov F 40/41 PCR Not detected, Stool Astrovirus (PCR) Not detected, Stool Campylobacter PCR Not detected, Stl C.difficile Tox PCR Not detected, Stool Cryptosporidium PCR Not detected, Stl E.coli Shiga Tox PCR Not detected, Stool E coli O157 PCR Not detected, Stl Enterotoxigenic E PCR Not detected, Stool EPEC (PCR) Detected A, Stool EAEC (PCR) Detected A, Stl E. histolytica PCR Not detected, Stool Giardia Lamblia PCR Not detected, Stool Salmonella PCR Not detected, Stool Sapovirus (PCR) Not detected, Stl P. shigelloides PCR Not detected, Stl Shigella/EIEC PCR Not detected, St Y.enterocolitica PCR Not detected, Stool Vibrio (PCR) Not detected, Stl Vibrio cholerae PCR Not detected, Stl Norovirus GI/GII PCR Not detected 07/17/21 23:47: Stool Occult Blood Negative I & O for Last 24 hours: Intake & Output 07/15/21 07/16/21 07/17/21 07/18/21 11:59 11:59 11:59 11:59 Intake Total 1240 / 1240 720 / 720 600 / 600 Output Total 850 / 850 Balance 1240 / 1240 720 / 720 -250 / -250 Weight 198 lb 8.244 oz 198 lb 6.656 oz 193 lb 1 oz - Constitutional no acute distress - *Routine HEENT Exam Head: Present: normocephalic Eye: Present: EOMI, PERRL ENT: Present: mucous membranes moist - *Routine Neck Exam Present: supple. Absent: lymphadenopathy - *Routine Respiratory Exam Present: rhonchi - *Routine Cardiovascular Exam Present: RRR - *Routine Abdominal Exam Present: soft, normoactive bowel sounds. Absent: tenderness - *Routine Extremities Exam Absent: cyanosis, clubbing, edema - *Routine Skin Exam Present: warm. Absent: rash - *Routine Neurological Exam Present: alert, oriented X3 Progress Note: A&P (1) COVID Status: Acute (2) Chest pain Status: Acute (3) Acute renal insufficiency Status: Acute (4) ASCVD (arteriosclerotic cardiovascular disease) Status: Acute (5) Elevated troponin level not due to acute coronary syndrome Status: Acute (6) Diabetes mellitus type 2 in nonobese Status: Acute (7) Ischemic cardiomyopathy Status: Acute Assessment and Plan for All Diagnoses:: 1. Covid infection, defer to Dr. Baugh. Patient is on zinc, vitamin D and vitamin C. 2. Chronic mildly elevated troponin, per pt's treating Lace Tearing Supervisor, Dr. Ordaz. EF on echo this admission is 30% which is not new. Will add ARB therapy. 3. Diabetes mellitus, type II 4. Hypertension, controlled on metoprolol but will add ARB therapy in light of patient's ischemic cardiomyopathy. 5. Hyperlipidemia, on statin and Zetia therapy. Stable from cardiology standpoint for discharge home Home medication recommendations Aspirin 81 mg daily Brilinta 90 mg twice daily Irbesartan 75 mg daily Metoprolol succinate XL 100 mg daily Furosemide 40 mg twice daily Crestor 40 mg daily Isosorbide mononitrate 60 mg daily Follow-up with Dr. Calzada in 1 week with BMP due to recently starting irbesartan.
--- NOTE | 2021-07-18 15:59 | PC.NURSE ---
Patient is NSR on the monitor and on room air. Patient is up ad-bee. Patient is alert and oriented times 4. Bed in lowest position and phone and call light in reach. Will continue to monitor.
[2021-07-19] VITALS: PULSE 80
[2021-07-19 04:00] VITALS: BP 134/72; PULSE 70; PULSE 88; RESP 18; TEMP 36.8; O2SAT 98
[2021-07-19 05:00] VITALS: BMI 23.5
[2021-07-19 08:00] VITALS: BP 147/88; PULSE 79; RESP 16; TEMP 36.6; O2SAT 98
--- NOTE | 2021-07-19 08:39 | HMH.ACPN2 ---
<Lety Santos - Last Filed: 07/19/21 08:39> Internal Medicine - PN: Subj *Date: 07/19/21 *Time: 08:39 Interval history: Patient states he is feeling well this morning and wants to go home. He has not had any oxygen or breathing treatments and states his breathing is normal. He denies any shortness of breath. He states he slept well and is eating well. He denies any pain. Exam Vital signs and Labs for Last 24 Hours: Temp Pulse Resp BP Pulse Ox 97.9 F 79 16 147/88 H 98 07/19/21 08:00 07/19/21 08:00 07/19/21 08:00 07/19/21 08:00 07/19/21 08:00 I & O for Last 24 hours: Intake & Output 07/16/21 07/17/21 07/18/21 07/19/21 11:59 11:59 11:59 11:59 Intake Total 1240 / 1240 720 / 720 720 / 720 700 / 700 Output Total 850 / 850 Balance 1240 / 1240 720 / 720 -130 / -130 700 / 700 Weight 198 lb 8.244 oz 198 lb 6.656 oz 193 lb 1 oz 193 lb - Constitutional no acute distress - *Routine Respiratory Exam Present: wheezes (faint) - *Routine Cardiovascular Exam Present: RRR - *Routine Abdominal Exam Present: soft, normoactive bowel sounds. Absent: tenderness - *Routine Extremities Exam Absent: cyanosis, clubbing, edema - *Routine Skin Exam Present: warm. Absent: rash - *Routine Neurological Exam Present: alert, oriented X3 Assessment and Plan (1) COVID Status: Acute Category: Medical Code(s): U07.1 - COVID-19 (2) Chest pain Status: Acute Qualifiers: Chest pain type: unspecified Qualified Code(s): R07.9 - Chest pain, unspecified Category: Medical Code(s): R07.9 - Chest pain, unspecified (3) Acute renal insufficiency Status: Acute Category: Medical Code(s): N28.9 - Disorder of kidney and ureter, unspecified (4) ASCVD (arteriosclerotic cardiovascular disease) Status: Acute Category: Medical Code(s): I25.10 - Atherosclerotic heart disease of [place] coronary artery without angina pectoris (5) Elevated troponin level not due to acute coronary syndrome Status: Acute Category: Medical Code(s): R77.8 - Other specified abnormalities of plasma proteins (6) Diabetes mellitus type 2 in nonobese Status: Acute Category: Medical Code(s): E11.9 - Type 2 diabetes mellitus without complications (7) Ischemic cardiomyopathy Status: Acute Category: Medical Code(s): I25.5 - Ischemic cardiomyopathy (8) Enteropathogenic Escherichia coli infection Status: Acute Category: Medical Code(s): A04.0 - Enteropathogenic Escherichia coli infection - Assessment and plan all Dx Assessment and Plan for all problems:: Patient is stable to be discharged home today. He will need to follow-up with his fighter pilot in 1 week. <Travis Baugh - Last Filed: 07/19/21 12:18> Internal Medicine - PN: Subj *Date: 07/19/21 *Time: 12:17 Exam Vital signs and Labs for Last 24 Hours: Temp Pulse Resp BP Pulse Ox 97.6 F 78 15 145/75 H 99 07/19/21 11:59 07/19/21 11:59 07/19/21 11:59 07/19/21 11:59 07/19/21 11:59 I & O for Last 24 hours: Intake & Output 07/17/21 07/18/21 07/19/21 07/20/21 11:59 11:59 11:59 11:59 Intake Total 720 / 720 720 / 720 700 / 700 Output Total 850 / 850 Balance 720 / 720 -130 / -130 700 / 700 Weight 198 lb 6.656 oz 193 lb 1 oz 193 lb Assessment and Plan (1) COVID Status: Acute Category: Medical Code(s): U07.1 - COVID-19 (2) Chest pain Status: Acute Qualifiers: Chest pain type: unspecified Qualified Code(s): R07.9 - Chest pain, unspecified Category: Medical Code(s): R07.9 - Chest pain, unspecified (3) Acute renal insufficiency Status: Acute Category: Medical Code(s): N28.9 - Disorder of kidney and ureter, unspecified (4) ASCVD (arteriosclerotic cardiovascular disease) Status: Acute Category: Medical Code(s): I25.10 - Atherosclerotic heart disease of [place] coronary artery without angina pectoris (5) Elevated troponin level not due to acut
[2021-07-19 11:59] VITALS: BP 145/75; PULSE 78; RESP 15; TEMP 36.4; O2SAT 99
[2021-07-19 15:37] VITALS: BP 143/90; PULSE 82; RESP 16; TEMP 36.7; O2SAT 97
[2021-07-20 01:34] LABS: POC Glucose,Bedside 300 (70-110)
--- NOTE | 2021-07-23 18:12 | HMH.DCSUM ---
General - General Admission date:: 07/15/21 <Travis Baugh - 09/21/21 17:52> 07/15/21 <NoelLety rai - 07/23/21 18:21> Discharge date: 07/19/21 <NoelLety rai - 07/23/21 18:21> HPI HPI: Mr. Keith is a 46-year-old white male with a history of coronary artery disease, congestive heart failure, hypertension, and diabetes mellitus. His PCP is Dr. Estrada as his PCP and Dr. Palacios as his nurse extern. States he has 20 coronary stents with 4 stents being placed as recently as 3 months ago. He presented to the emergency room last evening with complaints of chest pain and shortness of breath. This morning he tells me he came to the hospital because of a 2-day history of increasing malaise, generalized weakness, and cough. The chest pain he had last evening was not typical of angina he has had in the past. On work-up in the emergency room, he was found to be Covid positive with a normal white count. His chest x-ray showed some peribronchial cuffing consistent with a viral process. O2 sats 100% on room air. In addition his cardiac enzymes were mildly elevated x2 without significant delta. His creatinine was also found to be elevated at 1.9. He apparently has no history of chronic kidney disease. He has had no recent vomiting or diarrhea but appetite has been diminished. He denies any sick contacts. <NoelLety rai - 07/23/21 18:21> Hospital Course Hospital Course: The patient was admitted and continued on his maintenance medications. Cardiac enzymes were repeated. Due to his renal insufficiency, a CT scan for PE protocol could not be completed. It was felt a PE was less likely in view of his normal room air sats and no suspicion of DVT. He was started on IV fluids and his renal function was followed. Cardiology was consulted. Cardiology saw the patient and felt his elevated troponin was secondary to strain from pulmonary status related to Covid. His elevated BNP and lower extremity edema also were related to pulmonary strain and he was continued on Lasix. The patient did relate a recent cardiac cath [address] Calzada and at that time he was told his ejection fraction was around 35% chronically. Cardiology performed a preliminary echo and it was consistent with this measure. They discussed adding an ARB to the patient's regiment and Dr. Calzada was agreeable. His oxygen saturations remained greater than 90% on room air. He had several loose stools and complained of some abdominal cramping throughout the night which resolved. He had a diarrhea panel which was positive for E. coli. He was started on a probiotic and Levsin. Cardiology felt he could be discharged home and follow-up with his nurse extern. They recommended a BMP in 1 week due to recently starting irbesartan. The patient was feeling well by 07/19/2021 and wanted to go home. He was stable to be discharged and will follow up with his nurse extern in 1 week. Of note his diarrhea did resolve. <Lety Santos - 07/23/21 18:21> Objective Vital signs: Temp Pulse Resp BP Pulse Ox 98.1 F 82 16 143/90 H 97 07/19/21 15:37 07/19/21 15:37 07/19/21 15:37 07/19/21 15:37 07/19/21 15:37 <Travis Baugh - 09/21/21 17:52> Temp Pulse Resp BP Pulse Ox 98.1 F 82 16 143/90 H 97 07/19/21 15:37 07/19/21 15:37 07/19/21 15:37 07/19/21 15:37 07/19/21 15:37 <Lety Santos - 07/23/21 18:21> Narrative: - Constitutional no acute distress - *Routine Respiratory Exam Present: wheezes (faint) - *Routine Cardiovascular Exam Present: RRR - *Routine Abdominal Exam Present: soft, normoactive bowel sounds. Absent: tenderness - *Routine Extremities Exam Absent: cyanosis, clubbing, edema - *Routine Skin Exam Present: warm. Absent: rash - *Routine Neurological Exam Present: alert, oriented X3 <Lety Santos - 07/23/21 18:21> DS: Diagnosis - Discharge Diagnosis (1) COVID Status: Acute (
== END 2021-07-19 17:19 | disposition home or self-care (01) | DRG 178 ==
LOC: ER 23:07 → 2ND 23:44
PROVIDERS: Family Medicine; Admitting Provider Family Medicine; Emergency Provider Emergency Medicine; PCP Family Medicine; Visit Provider Family Medicine
DX: U07.1 COVID-19 (principal); A04.0 Enteropathogenic Escherichia coli infection; R07.9 Chest pain, unspecified; I25.10 Atherosclerotic heart disease of native coronary artery without angina pectoris; I25.5 Ischemic cardiomyopathy; I50.9 Heart failure, unspecified; I11.0 Hypertensive heart disease with heart failure; E11.9 Type 2 diabetes mellitus without complications; Z79.4 Long term (current) use of insulin; N28.9 Disorder of kidney and ureter, unspecified; Z95.5 Presence of coronary angioplasty implant and graft
CPT/HCPCS: 36415; 71046; 80048; 80053; 82272; 82728; 82962; 83880; 84484; 85025; 86140; 87507; 93005; 93306; 94640; 96365; 99284; C9803; G0328; U0003; U0005

== ENCOUNTER 2022-06-23 10:33 | Emergency (ER) | payer MEDICAID, SELFPAY ==
[2022-06-23 11:05] VITALS: BP 166/105; PULSE 80; RESP 16; TEMP 36.8; O2SAT 99; BMI 27.0
--- NOTE | 2022-06-23 11:11 | EXP.UTC ---
Discharge Plan Disposition Patient Disposition: Home, Self-Care Condition: Good Prescriptions Prescriptions: New furosemide [Lasix] 40 mg tablet 40 mg PO DAILY Qty: 3 0RF Rx Instructions: Take lasix 40mg po daily for the next 3 days, then resume you normal dose of lasix. No Action furosemide 40 MG tablet 40 mg PO BIDL metoprolol succinate 100 MG tablet extended release 24 hr 100 mg PO DAILY isosorbide mononitrate 60 MG tablet extended release 24 hr 60 mg PO DAILY metformin 1,000 MG tablet 1,000 mg PO BID nitroglycerin 0.4 MG tablet, sublingual 0.4 mg SL NEEDED PRN (Reason: Chest Pain) aspirin 81 MG tablet,chewable 81 mg PO DAILY loratadine 10 MG tablet 10 mg PO DAILY ezetimibe 10 MG tablet 10 mg PO DAILY rosuvastatin 40 MG tablet 40 mg PO DAILY insulin glargine 100 UNIT/ML insulin pen 50 units SQ HS Label Comments: INJECT 50 UNITS BY SUBCUTANEOUS ROUTE AT BEDTIME. ticagrelor 90 MG tablet 90 mg PO BID gabapentin 600 MG tablet 600 mg PO TID irbesartan 75 MG tablet 75 mg PO DAILY Qty: 30 0RF promethazine-DM 120 ML syrup 5 - 10 ml PO Q6HP PRN (Reason: Cough) Qty: 180 0RF Referrals Follow up/Referrals: Jesus Estrada [Primary Care Provider] - See instructions Activity Restrictions/Add. Instructions Additional Instructions/Restrictions: Take the medications as directed. Follow up with your regular doctor on Saturday. GO TO THE ER FOR ANY WORSENING SYMPTOMS Increase your dose of lasix to 40 mg daily for the next 3 days, then resume your normal 20 mg daily dose. Clinical Impressions Clinical Impression: CHF (congestive heart failure) Instructions Patient Instructions: Heart Failure, Furosemide Discharge ED Provider: Jesus Sahu [facility] General Stated complaint: SOA, legs swelling Mode of Arrival: Ambulatory Source of Information: Patient Limitations: No Limitations Time Seen by Provider: 06/23/22 11:11 Description of Symptoms (Recalled from Triage Doc. by RN): pt comes in with c/o shortness of breath, and bilateral leg swelling. symptoms began 3 days ago. pt states he does have CHF and has been taking his fluid pills daily. he reports that he began to have sob when the swelling began HEENT Symptoms (Recalled from RN notes): No Resp Symptoms (Recalled from RN notes): Yes Skin Symptoms (Recalled from RN notes): No MS Symptoms (Recalled from RN notes): No Functional Status (Recalled from RN notes): n/a History of Present Illness Provider Complaint: He states that for the past 3 days he has had worsening ankle edema and some shortness of breath. He denies any chest pain. Related Data Home Medications Medication Instructions Recorded Confirmed aspirin 81 mg chewable tablet 81 mg PO DAILY cardiac 07/15/21 07/15/21 ezetimibe 10 mg tablet 10 mg PO DAILY cardiac 07/15/21 07/15/21 furosemide 40 mg tablet 40 mg PO BIDL Fluid 07/15/21 07/16/21 insulin glargine 100 unit/mL (3 50 units SQ HS diabet 07/15/21 07/15/21 mL) subcutaneous pen isosorbide mononitrate 60 mg 60 mg PO DAILY Chest pain 07/15/21 07/15/21 tablet,extended release 24 hr loratadine 10 mg tablet 10 mg PO DAILY allergies 07/15/21 07/15/21 metformin 1,000 mg tablet 1,000 mg PO BID diabte 07/15/21 07/15/21 metoprolol succinate 100 mg 100 mg PO DAILY htn 07/15/21 07/15/21 tablet,extended release 24 hr nitroglycerin 0.4 mg sublingual 0.4 mg SL NEEDED PRN Chest Pain 07/15/21 07/15/21 tablet rosuvastatin 40 mg tablet 40 mg PO DAILY . 07/15/21 07/15/21 ticagrelor 90 mg tablet 90 mg PO BID . 07/15/21 07/15/21 gabapentin 600 mg tablet 600 mg PO TID NEUROPATHY 07/16/21 07/16/21 Previous Rx's Medication Instructions Recorded irbesartan 75 mg tablet 75 mg PO DAILY #30 tabs 07/19/21 promethazine-DM 6.25 mg-15 mg/5 mL 5 - 10 ml PO Q6HP PRN Cough #180 mL 07/19/21 oral syrup furosemide 40 mg tablet (Lasix) 40 mg PO
--- NOTE | 2022-06-23 11:34 | XR_ITS ---
PROCEDURE INFORMATION: Exam: XR Chest Exam date and time: 06/23/2022 11:43 AM Age: 46 years old Clinical indication: Shortness of breath; Additional info: Shortness of breath, swelling, h/o chf TECHNIQUE: Imaging protocol: Radiologic exam of the chest. Views: 2 views. COMPARISON: CR XR CHEST 2V 07/15/2021 9:04 PM FINDINGS: Lungs: Mild interstitial prominence without acute airspace disease. Pleural spaces: No pleural effusion. Heart/Mediastinum: Normal configuration of the heart. Coronary artery calcification and/or stent. Bones/joints: Mild degenerative change. IMPRESSION: No acute airspace or pleural disease.
[2022-06-23 12:08] VITALS: BP 166/105; PULSE 80; RESP 16; TEMP 36.8
== END 2022-06-23 12:08 | disposition home or self-care (01) ==
PROVIDERS: Emergency Provider Nurse Practitioner Family; PCP Family Medicine
DX: I50.9 Heart failure, unspecified (principal); R06.02 Shortness of breath; R05.9 Cough, unspecified; R60.0 Localized edema; Z79.4 Long term (current) use of insulin; Z79.82 Long term (current) use of aspirin; Z79.84 Long term (current) use of oral hypoglycemic drugs
CPT/HCPCS: 71046; 99213; G0463

== ENCOUNTER 2023-01-02 20:21 | Emergency (ER) | payer MEDICARE, MEDICAID, SELFPAY ==
[2023-01-02 20:24] VITALS: BP 166/107; PULSE 96; RESP 20; TEMP 36.9; O2SAT 99; BMI 27.7
[2023-01-02 20:30] VITALS: BP 166/107; PULSE 100; RESP 20; O2SAT 99
--- NOTE | 2023-01-02 20:47 | XR_ITS ---
PROCEDURE INFORMATION: Exam: XR Chest Exam date and time: 01/02/2023 9:14 PM Age: 47 years old Clinical indication: Other: Left lower lung crackles. TECHNIQUE: Imaging protocol: Radiologic exam of the chest. Views: 1 view. COMPARISON: CR XR CHEST 2V 06/23/2022 11:43 AM FINDINGS: Lungs: Mild central peribronchial thickening is unchanged. No consolidation. Pleural spaces: No pneumothorax. Heart/Mediastinum: No cardiomegaly. Vasculature: Stent overlying the cardiac silhouette. Bones/joints: No acute abnormality. IMPRESSION: No acute change from prior exam.
--- NOTE | 2023-01-02 20:48 | HMH.EDRECH ---
Discharge Plan Disposition Patient Disposition: Left Against Medical Advice Chief Complaint: Recheck/Abnormal Lab/Rx Prescriptions Prescriptions: No Action furosemide [Lasix] 40 mg tablet 40 mg PO DAILY Qty: 3 0RF Rx Instructions: Take lasix 40mg po daily for the next 3 days, then resume you normal dose of lasix. furosemide 40 MG tablet 40 mg PO BIDL metoprolol succinate 100 MG tablet extended release 24 hr 100 mg PO DAILY isosorbide mononitrate 60 MG tablet extended release 24 hr 60 mg PO DAILY metformin 1,000 MG tablet 1,000 mg PO BID nitroglycerin 0.4 MG tablet, sublingual 0.4 mg SL NEEDED PRN (Reason: Chest Pain) aspirin 81 MG tablet,chewable 81 mg PO DAILY loratadine 10 MG tablet 10 mg PO DAILY ezetimibe 10 MG tablet 10 mg PO DAILY rosuvastatin 40 MG tablet 40 mg PO DAILY insulin glargine 100 UNIT/ML insulin pen 50 units SQ HS Label Comments: INJECT 50 UNITS BY SUBCUTANEOUS ROUTE AT BEDTIME. ticagrelor 90 MG tablet 90 mg PO BID gabapentin 600 MG tablet 600 mg PO TID irbesartan 75 MG tablet 75 mg PO DAILY Qty: 30 0RF promethazine-DM 120 ML syrup 5 - 10 ml PO Q6HP PRN (Reason: Cough) Qty: 180 0RF Referrals Follow up/Referrals: Jesus Estrada [Primary Care Provider] - See instructions Clinical Impressions Clinical Impression: Acute renal failure Discharge ED Provider: Adolph Sewell HPI General Chief Complaint: Recheck/Abnormal Lab/Rx Stated Complaint: sent by catarinoy , renal failure Time Seen by Provider: 01/02/23 20:44 Mode of Arrival: Ambulatory Source of Information: Patient Limitations: No Limitations History of Present Illness HPI narrative: 47-year-old white male was scheduled for imaging today and is apparently undergoing treatment for colon cancer. His preimaging labs per his report revealed a creatinine of 5.9 opting his physician to send him to the emergency department informing him that he was in renal failure. He is simply here for recheck the labs in the management moving forward. Patient reports that he is asymptomatic with all this Related Data Home Medications Medication Instructions Recorded Confirmed aspirin 81 mg chewable tablet 81 mg PO DAILY cardiac 07/15/21 07/15/21 ezetimibe 10 mg tablet 10 mg PO DAILY cardiac 07/15/21 07/15/21 furosemide 40 mg tablet 40 mg PO BIDL Fluid 07/15/21 07/16/21 insulin glargine 100 unit/mL (3 50 units SQ HS diabet 07/15/21 07/15/21 mL) subcutaneous pen isosorbide mononitrate 60 mg 60 mg PO DAILY Chest pain 07/15/21 07/15/21 tablet,extended release 24 hr loratadine 10 mg tablet 10 mg PO DAILY allergies 07/15/21 07/15/21 metformin 1,000 mg tablet 1,000 mg PO BID diabte 07/15/21 07/15/21 metoprolol succinate 100 mg 100 mg PO DAILY htn 07/15/21 07/15/21 tablet,extended release 24 hr nitroglycerin 0.4 mg sublingual 0.4 mg SL NEEDED PRN Chest Pain 07/15/21 07/15/21 tablet rosuvastatin 40 mg tablet 40 mg PO DAILY . 07/15/21 07/15/21 ticagrelor 90 mg tablet 90 mg PO BID . 07/15/21 07/15/21 gabapentin 600 mg tablet 600 mg PO TID NEUROPATHY 07/16/21 07/16/21 Previous Rx's Medication Instructions Recorded irbesartan 75 mg tablet 75 mg PO DAILY #30 tabs 07/19/21 promethazine-DM 6.25 mg-15 mg/5 mL 5 - 10 ml PO Q6HP PRN Cough #180 mL 07/19/21 oral syrup furosemide 40 mg tablet (Lasix) 40 mg PO DAILY #3 tabs 06/23/22 Allergies Allergy/AdvReac Type Severity Reaction Status Date / Time No Known Allergies Allergy Verified 06/23/22 11:08 [facility] Disclaimer: The information contained in this section may have been updated after the patient was seen, as this information can be updated by other users. Social History Smoking Status: Former smoker alcohol intake: never current occupational status: unemployed Travel in the last 8 weeks: None household me
[2023-01-02 20:54] LABS: MANUAL DIFFERENTIAL MANUAL DIFFERENTIAL (MANUAL DIFF)
[2023-01-02 20:58] LABS: Basophils % 0.1 % (0.1-2.0); Chloride 96 mmol/L (98-107); Eosinophils # 0.1 K/mm3 (0.0-0.4); Eosinophils % 0.5 % (0.1-12.0); Hematocrit 37.2 % (42.0-52.0); Hemoglobin 11.1 g/dL (14.1-18.0); Lymphocytes # 0.9 K/mm3 (0.7-4.5); Lymphocytes % 6.3 % (10-50); Mean Corpuscular HGB Conc 29.7 g/dL (31.8-35.4); Mean Corpuscular Hemoglobin 26.4 pg (27.0-31.2); Mean Corpuscular Volume 88.9 fl (80-94); Mean Platelet Volume 9.3 fl (7.4-10.4); Monocytes # 0.5 K/mm3 (0.1-1.0); Monocytes % 3.6 % (1.7-9.3); Neutrophils # 12.9 K/mm3 (1.8-7.8); Neutrophils % 89.6 % (37.0-80.0); Platelet Count 359 K/mm3 (142-424); Red Blood Count 4.19 M/mm3 (4.60-6.20); Red Cell Distribution Width 15.6 % (11.5-17.5); White Blood Count 14.4 K/mm3 (4.8-10.8)
[2023-01-02 20:59] LABS: Potassium 4.7 mmoL/L (3.5-5.1); Sodium 132 mmol/L (136-145)
[2023-01-02 21:01] LABS: Alanine Aminotransferase 39 U/L (12-78); Alkaline Phosphatase 136 U/L (38-126); Aspartate Amino Transferase 41 U/L (17-59); Bilirubin,Total 0.4 mg/dl (0.2-1.3); Blood Urea Nitrogen 45 mg/dl (9-20); Creatinine Clearance Estimated 24 mL/min (50-200); Estimated Glomerular Filt Rate 11 ml/min (>60); GFR (African American) 14 ML/MIN (>60)
[2023-01-02 21:02] LABS: Albumin Level 3.6 g/dl (3.5-5.0); Anion Gap 21.7 mEq/L (5-15); Carbon Dioxide 19 mmol/L (22.0-30.0); Globulin 3.6 g/dL (1.3-3.2); Total Protein,Serum 7.2 g/dl (6.3-8.2)
[2023-01-02 21:11] LABS: Calcium 8.1 mg/dl (8.4-10.2); NT Pro Brain Natriuretic Pep. 9720 pg/mL (0-125)
--- NOTE | 2023-01-02 21:11 | PC.NURSE ---
Dr. Sewell notified of critical blood glucose, GFR, and creatine
[2023-01-02 21:13] LABS: Glucose 678 mg/dl (74-100)
--- NOTE | 2023-01-02 21:18 | PC.NURSE ---
md at bedside discussingplan of care withpatient. Patient is a&ox4 with clear verbalization and no signs of confusion. Patient has a family member at bedside. Patient refuses to pursue further evaluation in the ED. Doesn't want to be transferred or even consider admission to a tertiary facility at this time. Stated he only came in to appease his pcp. Vital signs hypertensive, but mostly normal. No acute distress. Ambulated out of facility.
[2023-01-02 21:23] VITALS: BP 167/100; PULSE 88; RESP 18; TEMP 36.7; O2SAT 98
[2023-01-02 21:33] LABS: Lymphocytes % 9 % (10-50); Monocytes % 1 % (2-9); Neutrophils % 90 % (42-76); Platelet Estimate Normal; RBC Morphology Normal; Total Cells Counted 100
== END 2023-01-02 21:28 | disposition left against medical advice (07) ==
PROVIDERS: Emergency Provider Emergency Medicine; PCP Family Medicine
DX: N17.9 Acute kidney failure, unspecified (principal); Z87.891 Personal history of nicotine dependence
CPT/HCPCS: 71045; 80053; 83880; 85007; 85014; 85018; 85048; 85049; 99284; 99285

== ENCOUNTER 2023-02-07 20:24 | Emergency (ER) | payer OTHER, MEDICAID, SELFPAY ==
[2023-02-07 20:25] VITALS: BP 184/98; PULSE 84; RESP 16; TEMP 36.5; O2SAT 100; BMI 30.7
[2023-02-07 20:30] VITALS: BMI 31.5
--- NOTE | 2023-02-07 20:31 | XR_ITS ---
PROCEDURE INFORMATION: Exam: XR Right Hip Exam date and time: 02/07/2023 8:30 PM Age: 47 years old Clinical indication: Injury or trauma; Fall; Blunt trauma (contusions or hematomas); Right; Hip and pelvic region TECHNIQUE: Imaging protocol: Radiologic exam of the right hip. Views: 2 or 3 views hip with pelvis when performed. COMPARISON: No relevant prior studies available. FINDINGS: Bones/joints: Mild degenerative changes. No acute fracture. Soft tissues: Unremarkable. IMPRESSION: No acute findings.
--- NOTE | 2023-02-07 20:31 | XR_ITS ---
PROCEDURE INFORMATION: Exam: XR Right Knee Exam date and time: 02/07/2023 8:29 PM Age: 47 years old Clinical indication: Injury or trauma; Fall; Blunt trauma; Knee; Right TECHNIQUE: Imaging protocol: Radiologic exam of the right knee. Views: 3 views. COMPARISON: No relevant prior studies available. FINDINGS: Bones/joints: Enthesophyte at the quadriceps tendon insertion. No acute fracture or dislocation. Soft tissues: Subtle cartilage calcification. Vasculature: Vascular calcifications. 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
--- NOTE | 2023-02-07 21:18 | HMH.EDFALL ---
Discharge Plan Disposition Patient Disposition: Home, Self-Care Prescriptions Prescriptions: No Action furosemide [Lasix] 40 mg tablet 40 mg PO DAILY Qty: 3 0RF Rx Instructions: Take lasix 40mg po daily for the next 3 days, then resume you normal dose of lasix. furosemide 40 MG tablet 40 mg PO BIDL metoprolol succinate 100 MG tablet extended release 24 hr 100 mg PO DAILY isosorbide mononitrate 60 MG tablet extended release 24 hr 60 mg PO DAILY metformin 1,000 MG tablet 1,000 mg PO BID nitroglycerin 0.4 MG tablet, sublingual 0.4 mg SL NEEDED PRN (Reason: Chest Pain) aspirin 81 MG tablet,chewable 81 mg PO DAILY loratadine 10 MG tablet 10 mg PO DAILY ezetimibe 10 MG tablet 10 mg PO DAILY rosuvastatin 40 MG tablet 40 mg PO DAILY insulin glargine 100 UNIT/ML insulin pen 50 units SQ HS Label Comments: INJECT 50 UNITS BY SUBCUTANEOUS ROUTE AT BEDTIME. ticagrelor 90 MG tablet 90 mg PO BID gabapentin 600 MG tablet 600 mg PO TID irbesartan 75 MG tablet 75 mg PO DAILY Qty: 30 0RF promethazine-DM 120 ML syrup 5 - 10 ml PO Q6HP PRN (Reason: Cough) Qty: 180 0RF Referrals Follow up/Referrals: Jesus Estrada [Primary Care Provider] - See instructions Clinical Impressions Clinical Impression: Injury of knee, Injury of hip Instructions Patient Instructions: DI for Knee Pain Discharge ED Provider: Joleen (ED)Thom HPI General Chief Complaint: Fall Stated Complaint: [id number] right side pain, fell at home Time Seen by Provider: 02/07/23 20:30 Mode of Arrival: Wheelchair Source of Information: Patient and Medical Record Limitations: No Limitations Description of Symptoms (Recalled from ER Triage Doc. by RN): pt states was walking to bathroom in socks and slipped and fell. pt c/o rt hip and knee pain History of Present Illness HPI Narrative: trip type fall tonight with rt knee and hip pain MD complaint: fall Onset (ago): hour(s) Fall from: walking Fall witnessed: no Place fall occurred: home Loss of consciousness: none Prolonged down time: no Context: tripped/slipped Location of injury - extremities: Right: thigh and knee Severity: moderate Associated symptoms (after fall): denies Related Data Home Medications Medication Instructions Recorded Confirmed aspirin 81 mg chewable tablet 81 mg PO DAILY cardiac 07/15/21 07/15/21 ezetimibe 10 mg tablet 10 mg PO DAILY cardiac 07/15/21 07/15/21 furosemide 40 mg tablet 40 mg PO BIDL Fluid 07/15/21 07/16/21 insulin glargine 100 unit/mL (3 50 units SQ HS diabet 07/15/21 07/15/21 mL) subcutaneous pen isosorbide mononitrate 60 mg 60 mg PO DAILY Chest pain 07/15/21 07/15/21 tablet,extended release 24 hr loratadine 10 mg tablet 10 mg PO DAILY allergies 07/15/21 07/15/21 metformin 1,000 mg tablet 1,000 mg PO BID diabte 07/15/21 07/15/21 metoprolol succinate 100 mg 100 mg PO DAILY htn 07/15/21 07/15/21 tablet,extended release 24 hr nitroglycerin 0.4 mg sublingual 0.4 mg SL NEEDED PRN Chest Pain 07/15/21 07/15/21 tablet rosuvastatin 40 mg tablet 40 mg PO DAILY . 07/15/21 07/15/21 ticagrelor 90 mg tablet 90 mg PO BID . 07/15/21 07/15/21 gabapentin 600 mg tablet 600 mg PO TID NEUROPATHY 07/16/21 07/16/21 Previous Rx's Medication Instructions Recorded irbesartan 75 mg tablet 75 mg PO DAILY #30 tabs 07/19/21 promethazine-DM 6.25 mg-15 mg/5 mL 5 - 10 ml PO Q6HP PRN Cough #180 mL 07/19/21 oral syrup furosemide 40 mg tablet (Lasix) 40 mg PO DAILY #3 tabs 06/23/22 Allergies Allergy/AdvReac Type Severity Reaction Status Date / Time No Known Allergies Allergy Verified 06/23/22 11:08 [facility] Disclaimer: The information contained in this section may have been updated after the patient was seen, as this information can be updated by other users. Social History Smoking Status: C
[2023-02-07 21:23] VITALS: BP 154/92; PULSE 82; RESP 16; TEMP 36.5; O2SAT 100
== END 2023-02-07 21:35 | disposition home or self-care (01) ==
PROVIDERS: Emergency Provider Emergency Medicine; PCP Family Medicine
DX: M25.551 Pain in right hip (principal); M25.561 Pain in right knee; F17.200 Nicotine dependence, unspecified, uncomplicated; W01.0XXA Fall on same level from slipping, tripping and stumbling without subsequent striking against object, initial encounter
CPT/HCPCS: 73502; 73562; 99283

== ENCOUNTER → 2023-04-09 12:51 | Outpatient (CLI) | payer OTHER, SELFPAY ==
[2023-04-09 13:43] LABS: Basophils # 0.1 K/mm3 (0-0.2); Basophils % 0.6 % (0.1-2.0); Eosinophils # 0.6 K/mm3 (0.0-0.4); Eosinophils % 6.1 % (0.1-12.0); Lymphocytes # 2.2 K/mm3 (0.7-4.5); Lymphocytes % 21.3 % (10-50); Mean Corpuscular HGB Conc 30.9 g/dL (31.8-35.4); Mean Corpuscular Hemoglobin 25.7 pg (27.0-31.2); Mean Corpuscular Volume 83.1 fl (80-94); Mean Platelet Volume 9.6 fl (7.4-10.4); Monocytes # 0.8 K/mm3 (0.1-1.0); Monocytes % 7.2 % (1.7-9.3); Neutrophils # 6.7 K/mm3 (1.8-7.8); Neutrophils % 64.8 % (37.0-80.0); Platelet Count 381 K/mm3 (142-424); Red Blood Count 3.45 M/mm3 (4.60-6.20); Red Cell Distribution Width 15.9 % (11.5-17.5); White Blood Count 10.3 K/mm3 (4.8-10.8)
[2023-04-09 13:59] LABS: Hematocrit 28.7 % (42.0-52.0); Hemoglobin 8.9 g/dL (14.1-18.0)
[2023-04-09 15:25] LABS: Albumin Level 3.4 g/dl (3.5-5.0); Anion Gap 19.6 mEq/L (5-15); Blood Urea Nitrogen 32 mg/dl (9-20); Calcium 8.3 mg/dl (8.4-10.2); Carbon Dioxide 16 mmol/L (22.0-30.0); Chloride 109 mmol/L (98-107); Estimated Glomerular Filt Rate 13 ml/min (>60); GFR (African American) 15 ML/MIN (>60); Glucose 289 mg/dl (74-100); Phosphorous 5.4 mg/dl (2.5-4.5); Potassium 4.6 mmoL/L (3.5-5.1); Sodium 140 mmol/L (136-145)
== END ==
PROVIDERS: PCP Family Medicine; Visit Provider Internal Medicine Nephrology
DX: N18.5 Chronic kidney disease, stage 5 (principal); D63.1 Anemia in chronic kidney disease; I12.0 Hypertensive chronic kidney disease with stage 5 chronic kidney disease or end stage renal disease; E78.5 Hyperlipidemia, unspecified; E11.29 Type 2 diabetes mellitus with other diabetic kidney complication; R30.9 Painful micturition, unspecified; R31.9 Hematuria, unspecified; E55.9 Vitamin D deficiency, unspecified; N17.9 Acute kidney failure, unspecified; Z79.4 Long term (current) use of insulin
CPT/HCPCS: 36415; 80069; 85025

== ENCOUNTER 2023-06-09 14:18 | Emergency (ER) | payer OTHER, SELFPAY ==
[2023-06-09] VITALS (10 sets, daily range): BP systolic 89–123; BP diastolic 49–74; PULSE 92–98; RESP 18–26; TEMP 35.7–35.9; O2SAT 86–96; BMI 23.7
--- NOTE | 2023-06-09 14:25 | ECG_ITS ---
APPROVED REPORT Exam: Resting ECG HR:94 bpm ECG Measurements Heart Rate [address] 142 P 38 QRSd 138 QRS 13 QT 416 T 144 QTc 468 Conclusion SINUS RHYTHM INTRAVENTRICULAR CONDUCTION DELAY [130+ ms QRS DURATION] Isolated Q in iii ABNORMAL ECG UNCONFIRMED REPORT Electronically signed by : Hector Ngo MD 06/10/2023 19:41:46
--- NOTE | 2023-06-09 14:28 | HMH.EDGENADL ---
Discharge Plan Disposition Chief Complaint: Chest Pain Prescriptions Prescriptions: No Action furosemide [Lasix] 40 mg tablet 40 mg PO DAILY Qty: 3 0RF Rx Instructions: Take lasix 40mg po daily for the next 3 days, then resume you normal dose of lasix. furosemide 40 MG tablet 40 mg PO BIDL metoprolol succinate 100 MG tablet extended release 24 hr 100 mg PO DAILY isosorbide mononitrate 60 MG tablet extended release 24 hr 60 mg PO DAILY metformin 1,000 MG tablet 1,000 mg PO BID nitroglycerin 0.4 MG tablet, sublingual 0.4 mg SL NEEDED PRN (Reason: Chest Pain) aspirin 81 MG tablet,chewable 81 mg PO DAILY loratadine 10 MG tablet 10 mg PO DAILY ezetimibe 10 MG tablet 10 mg PO DAILY rosuvastatin 40 MG tablet 40 mg PO DAILY insulin glargine 100 UNIT/ML insulin pen 50 units SQ HS Patient Comments: INJECT 50 UNITS BY SUBCUTANEOUS ROUTE AT BEDTIME. ticagrelor 90 MG tablet 90 mg PO BID gabapentin 600 MG tablet 600 mg PO TID irbesartan 75 MG tablet 75 mg PO DAILY Qty: 30 0RF promethazine-DM 120 ML syrup 5 - 10 ml PO Q6HP PRN (Reason: Cough) Qty: 180 0RF Referrals Follow up/Referrals: Provider,Referral, MD [Primary Care Provider] - See instructions Discharge ED Provider: Arsh Cooper Adult HPI General Chief complaint: Chest Pain Stated complaint: soa Time Seen by Provider: 06/09/23 14:25 History of Present Illness HPI narrative: The patient presents today with chief complaint of difficulty breathing and general malaise. The patient reports that these symptoms began earlier today, and they also experienced diarrhea yesterday. The diarrhea was initially yellow, followed by bright red episodes. The patient denies having any fevers but reports a new onset of neck soreness that started yesterday. The patient has a history of anemia, which was first diagnosed in childhood and then re-diagnosed in October of this year. The patient has received blood transfusions in [place] and [place], with the most recent transfusion occurring last Saturday. The patient denies any association between their anemia and their recent rectal cancer surgery, which took place on the of last month. The patient has multiple comorbidities, including diabetes, kidney failure, coronary heart disease, congestive heart failure, and diabetic neuropathy. They report taking two nitroglycerin tablets due to chest discomfort, which they believe may have been related to anxiety from their difficulty breathing. The patient denies any history of lung issues and does not smoke. They have not been around anyone sick recently. The patient's hemoglobin level was at the threshold for requiring a transfusion during their last check. They deny any recent falls or head injuries, but mention a broken thumbnail. Additional history limited secondary to patient's mental status, frequently dozing off, and difficulty remembering details of medical history and HPI. Related Data Home Medications Medication Instructions Recorded Confirmed aspirin 81 mg chewable tablet 81 mg PO DAILY cardiac 07/15/21 07/15/21 ezetimibe 10 mg tablet 10 mg PO DAILY cardiac 07/15/21 07/15/21 furosemide 40 mg tablet 40 mg PO BIDL Fluid 07/15/21 07/16/21 insulin glargine 100 unit/mL (3 50 units SQ HS diabet 07/15/21 07/15/21 mL) subcutaneous pen isosorbide mononitrate 60 mg 60 mg PO DAILY Chest pain 07/15/21 07/15/21 tablet,extended release 24 hr loratadine 10 mg tablet 10 mg PO DAILY allergies 07/15/21 07/15/21 metformin 1,000 mg tablet 1,000 mg PO BID diabte 07/15/21 07/15/21 metoprolol succinate 100 mg 100 mg PO DAILY htn 07/15/21 07/15/21 tablet,extended release 24 hr nitroglycerin 0.4 mg sublingual 0.4 mg SL NEEDED PRN Chest Pain 07/15/21 07/15/21 tablet rosuvastatin 40 mg tablet 40 mg PO DAILY . 07/15/21 07/15/21 ticagrelor 90 mg tablet 90 mg PO BID . 07/15/21
--- NOTE | 2023-06-09 15:15 | PC.NURSE ---
Instructed by lab to draw both sets of blood cultures in one draw because patient is a hard stick. Instructed to draw one set then lactic and second set. E[facility] @ for lab draw for type and screen
--- NOTE | 2023-06-09 15:18 | PC.NURSE ---
Respiratory notified of VBG in lab
[2023-06-09 15:23] LABS: VBG Base Excess -13.6 mmol/L (-2.4-2.3); VBG HCO3 12.1 mmol/L (23-30); VBG Oxygen Saturation 95.5 % (50-70); VBG PH 7.35 mmol/L (7.31-7.41); VBG PO2 91.5 mmol/L (28-40); VBG Total CO2 12.8 mmol/L (23-27)
--- NOTE | 2023-06-09 15:25 | PC.NURSE ---
V/O per MD for 500mL NS bolus IV.
[2023-06-09 15:26] LABS: VBG PCO2 22.6 mmol/L (35-51)
[2023-06-09 15:28] LABS: Basophils # 0.1 K/mm3 (0-0.2); Basophils % 0.3 % (0.1-2.0); Eosinophils # 0.3 K/mm3 (0.0-0.4); Eosinophils % 1.6 % (0.1-12.0); Lymphocytes # 2.2 K/mm3 (0.7-4.5); Lymphocytes % 12.8 % (10-50); Mean Corpuscular HGB Conc 30.3 g/dL (31.8-35.4); Mean Corpuscular Hemoglobin 25.7 pg (27.0-31.2); Mean Corpuscular Volume 84.8 fl (80-94); Mean Platelet Volume 9.4 fl (7.4-10.4); Monocytes # 0.7 K/mm3 (0.1-1.0); Monocytes % 4.1 % (1.7-9.3); Neutrophils # 13.8 K/mm3 (1.8-7.8); Neutrophils % 81.3 % (37.0-80.0); Platelet Count 472 K/mm3 (142-424); Red Cell Distribution Width 20.4 % (11.5-17.5)
[2023-06-09 15:31] LABS: Chloride 109 mmol/L (98-107)
[2023-06-09 15:32] LABS: Potassium 5.2 mmoL/L (3.5-5.1); Sodium 136 mmol/L (136-145)
[2023-06-09 15:34] LABS: Alanine Aminotransferase 33 U/L (12-78); Alkaline Phosphatase 85 U/L (38-126); Aspartate Amino Transferase 36 U/L (17-59); Bilirubin,Total 0.4 mg/dl (0.2-1.3); Blood Urea Nitrogen 65 mg/dl (9-20); Creatinine Clearance Estimated 15 mL/min (50-200); Estimated Glomerular Filt Rate 9 ml/min (>60); GFR (African American) 10 ML/MIN (>60); INR 1.21 (0.9-1.1); Prothrombin Time 12.9 seconds (10.1-12.5)
[2023-06-09 15:35] LABS: Albumin Level 2.6 g/dl (3.5-5.0); Anion Gap 22.2 mEq/L (5-15); Calcium 7.5 mg/dl (8.4-10.2); Globulin 2.6 g/dL (1.3-3.2); Glucose 233 mg/dl (74-100); Lipase 246 U/L (23-300); Magnesium 2.1 mg/dl (1.6-2.3); Phosphorous 7.6 mg/dl (2.5-4.5); Total Protein,Serum 5.2 g/dl (6.3-8.2)
[2023-06-09 15:39] LABS: Hematocrit 13.6 % (42.0-52.0)
--- NOTE | 2023-06-09 15:39 | PC.NURSE ---
Dr. Cooper at BS for pt eval
[2023-06-09 15:40] LABS: Carbon Dioxide 10 mmol/L (22.0-30.0); MANUAL DIFFERENTIAL MANUAL DIFFERENTIAL (MANUAL DIFF)
--- NOTE | 2023-06-09 15:42 | PC.NURSE ---
Criticial H&H: Hgb of 4.1 and Hct of 13.6 MD notified.
--- NOTE | 2023-06-09 15:47 | PC.NURSE ---
notified dr. mandel and dr. boucher of critical creatinine and CO2
[2023-06-09 15:48] LABS: Fibrinogen 448 mg/dL (229.9-363.5); Troponin I 1.28 ng/ml (0.00-0.034)
[2023-06-09 15:48] LABS: Coronavirus 19, PCR Not Detected (NotDetected); Influenza A, PCR Not Detected (NotDetected); Influenza B, PCR Not Detected (NotDetected)
--- NOTE | 2023-06-09 15:49 | PC.NURSE ---
notified dr. boucher of critical troponin result
--- NOTE | 2023-06-09 16:02 | PC.NURSE ---
Addendum entered by Polly Ballard RN 06/09/23 16:02: Dr. Bonds accepted pt to [facility] Original Note: Dr. Harper speaking with [facility] at this time.
--- NOTE | 2023-06-09 16:03 | PC.NURSE ---
called [facility] for transfer Dr Harper speaking with Dr Quinn
--- NOTE | 2023-06-09 16:05 | PC.NURSE ---
lab staff reports approx 30 minutes until blood will be ready for transfusion.
--- NOTE | 2023-06-09 16:06 | PC.NURSE ---
Called [facility] and they will check weather and flight availability and will call back.
--- NOTE | 2023-06-09 16:08 | PC.NURSE ---
Rounded on patient and updated on [facility]illon of care. Blood consent form signed by patient. @
--- NOTE | 2023-06-09 16:08 | PC.NURSE ---
[facility] accepted transport, states will call back with ETA
--- NOTE | 2023-06-09 16:08 | PC.NURSE ---
[facility] accepted pt approx ETA 22 mins after fuel up
--- NOTE | 2023-06-09 16:38 | PC.NURSE ---
[facility] staff at BS
[2023-06-09 16:40] LABS: Anisocytosis 1+; Lymphocytes % 18 % (10-50); Microcytosis 1+; Monocytes % 5 % (2-9); Neutrophils % 77 % (42-76); Platelet Estimate Slight Increase; Total Cells Counted 100
--- NOTE | 2023-06-09 16:40 | PC.NURSE ---
Report handed off to Annie from [facility]
[2023-06-09 16:41] LABS: Hemoglobin 4.1 g/dL (14.1-18.0); Hypochromasia 3+; Macrocytosis 1+
--- NOTE | 2023-06-09 16:41 | PC.NURSE ---
Lab still has not called that blood was ready; stated do not delay transfer because of blood status. [facility] notified patient has not received blood products
--- NOTE | 2023-06-09 16:50 | PC.NURSE ---
lab called stating blood was ready. [facility] staff loading pt onto their stretcher, stated okay to go and get blood and they will take unit of blood with them for transfusion.
--- NOTE | 2023-06-09 16:54 | PC.NURSE ---
Started blood transfusion @1653. [facility] exited and left with patient @1655
--- NOTE | 2023-06-09 16:55 | PC.NURSE ---
Turned over to [facility] with 1st bag infusion and vitals.
== END 2023-06-09 16:55 | disposition short-term general hospital (02) ==
PROVIDERS: Emergency Provider Emergency Medicine
DX: D64.9 Anemia, unspecified (principal); R07.89 Other chest pain; R06.02 Shortness of breath; N18.9 Chronic kidney disease, unspecified; I11.0 Hypertensive heart disease with heart failure; I50.89 Other heart failure; I25.10 Atherosclerotic heart disease of native coronary artery without angina pectoris; I25.5 Ischemic cardiomyopathy; E11.65 Type 2 diabetes mellitus with hyperglycemia; R77.8 Other specified abnormalities of plasma proteins; Z79.4 Long term (current) use of insulin; N17.9 Acute kidney failure, unspecified
CPT/HCPCS: 80053; 82803; 83690; 83735; 84100; 84484; 85007; 85025; 85384; 85610; 86850; 87636; 93005; 99291; P9016

== ENCOUNTER 2023-09-22 19:07 | Emergency (ER) | payer OTHER, SELFPAY ==
[2023-09-22 19:09] VITALS: BP 160/96; PULSE 96; RESP 12; TEMP 36.4; O2SAT 94; BMI 26.7
--- NOTE | 2023-09-22 19:12 | ECG_ITS ---
APPROVED REPORT Exam: Resting ECG HR:95 bpm ECG Measurements Heart Rate [address] 148 P 80 QRSd 112 QRS -53 QT 390 T 127 QTc 443 Conclusion SINUS RHYTHM INDETERMINATE AXIS LOW QRS VOLTAGE IN EXTREMITY LEADS [QRS DEFLECTION < 0.5 mV IN LIMB LEADS] PATTERN CONSISTENT WITH PULMONARY DISEASE LEFT ANTERIOR FASCICULAR BLOCK [QRS AXIS <= -45, QR IN I, RS IN II] MINIMAL ST DEPRESSION [0.025+ mV ST DEPRESSION] ABNORMAL QRS-T ANGLE [QRS-T AXIS DIFFERENCE > 60] ABNORMAL ECG UNCONFIRMED REPORT Electronically signed by : Hector Ngo MD 09/23/2023 17:29:29
--- NOTE | 2023-09-22 19:16 | HMH.EDGENADL ---
Discharge Plan Disposition Patient Disposition: Home, Self-Care Chief Complaint: Weakness Prescriptions Prescriptions: No Action furosemide [Lasix] 40 mg tablet 40 mg PO DAILY Qty: 3 0RF Rx Instructions: Take lasix 40mg po daily for the next 3 days, then resume you normal dose of lasix. furosemide 40 MG tablet 40 mg PO BIDL metoprolol succinate 100 MG tablet extended release 24 hr 100 mg PO DAILY isosorbide mononitrate 60 MG tablet extended release 24 hr 60 mg PO DAILY metformin 1,000 MG tablet 1,000 mg PO BID nitroglycerin 0.4 MG tablet, sublingual 0.4 mg SL NEEDED PRN (Reason: Chest Pain) aspirin 81 MG tablet,chewable 81 mg PO DAILY loratadine 10 MG tablet 10 mg PO DAILY ezetimibe 10 MG tablet 10 mg PO DAILY rosuvastatin 40 MG tablet 40 mg PO DAILY insulin glargine 100 UNIT/ML insulin pen 50 units SQ HS Patient Comments: INJECT 50 UNITS BY SUBCUTANEOUS ROUTE AT BEDTIME. ticagrelor 90 MG tablet 90 mg PO BID gabapentin 600 MG tablet 600 mg PO TID irbesartan 75 MG tablet 75 mg PO DAILY Qty: 30 0RF promethazine-DM 120 ML syrup 5 - 10 ml PO Q6HP PRN (Reason: Cough) Qty: 180 0RF Referrals Follow up/Referrals: Jesus Estrada [Primary Care Provider] - See instructions Activity Restrictions/Add. Instructions Additional Instructions/Restrictions: At this time it was felt you are safe to be discharged home. If new or worsening symptoms please do not hesitate to return the emergency department. Please follow-up for dialysis tomorrow morning as discussed. Clinical Impressions Clinical Impression: Chronic uremia, CKD (chronic kidney disease), Weakness Discharge ED Provider: Bob Fuentes General Adult HPI General Chief complaint: Weakness Stated complaint: difficuty breathing, weak Time Seen by Provider: 09/22/23 19:07 History of Present Illness HPI narrative: Patient is a 48-year-old male with past medical history of diabetes with intermittent insulin control, CHF, coronary artery disease status post stenting, dialysis dependent Saturday and Saturday who presents emergency department for evaluation of global weakness. Onset was acute, over the last 48 to 72 hours. Patient missed his Saturday appointment due to inclement weather. He is scheduled at 1145 tomorrow morning for his dialysis. There is associated nausea. Due to persistent symptoms he presents here for continued evaluation. Denies chest pain, cough, significant shortness of breath. Related Data Home Medications Medication Instructions Recorded Confirmed aspirin 81 mg chewable tablet 81 mg PO DAILY cardiac 07/15/21 09/22/23 ezetimibe 10 mg tablet 10 mg PO DAILY cardiac 07/15/21 09/22/23 furosemide 40 mg tablet 40 mg PO BIDL Fluid 07/15/21 09/22/23 insulin glargine 100 unit/mL (3 50 units SQ HS diabet 07/15/21 09/22/23 mL) subcutaneous pen isosorbide mononitrate 60 mg 60 mg PO DAILY Chest pain 07/15/21 09/22/23 tablet,extended release 24 hr loratadine 10 mg tablet 10 mg PO DAILY allergies 07/15/21 09/22/23 metformin 1,000 mg tablet 1,000 mg PO BID diabte 07/15/21 09/22/23 metoprolol succinate 100 mg 100 mg PO DAILY htn 07/15/21 09/22/23 tablet,extended release 24 hr nitroglycerin 0.4 mg sublingual 0.4 mg SL NEEDED PRN Chest Pain 07/15/21 09/22/23 tablet rosuvastatin 40 mg tablet 40 mg PO DAILY . 07/15/21 09/22/23 ticagrelor 90 mg tablet 90 mg PO BID . 07/15/21 09/22/23 gabapentin 600 mg tablet 600 mg PO TID NEUROPATHY 07/16/21 09/22/23 Previous Rx's Medication Instructions Recorded irbesartan 75 mg tablet 75 mg PO DAILY #30 tabs 07/19/21 promethazine-DM 6.25 mg-15 mg/5 mL 5 - 10 ml PO Q6HP PRN Cough #180 mL 07/19/21 oral syrup furosemide 40 mg tablet (Lasix) 40 mg PO DAILY #3 tabs 06/23/22 Allergies Allergy/AdvReac Type Severity Reaction Status Date / Time No Known Allergies Allergy Verified 06/23/22 11:08 [facility] Disclaimer: The information contained in this section may have been updated after the patient was seen, as this information can be updated by other users. Social History Smoking Status: Never smoker alcohol intake: never current occupational status: unemployed Travel in the last 8 weeks: None household members: children ROS Obtained: Yes Systems reviewed as appropriate & no additional complaints except as documented Physical Exam General General appearance: alert and in no apparent distress Head Head exam: atraumatic and normocephalic Eye Eye exam: Present PERRL and EOMI ENT ENT exam: Present mucous membranes moist Neck Neck exam: Present normal inspection Chest Chest inspection: Present normal inspection and symmetric chest wall rise Respiratory Respiratory exam: Present normal lung sounds bilaterally; Absent respiratory distress Cardiovascular Cardiovascular exam: Present regular rate, normal rhythm and other (Dialysis fistula left upper extremity with palpable thrill) Abdominal Exam Abdominal exam: Present soft; Absent tenderness Extremities Exam Extremities exam: Present normal inspection and other (1+ pitting edema bilateral lower extremities) Neurological Exam Neurological exam: Present alert; Absent motor sensory deficit Psychiatric Psychiatric exam: Present normal affect Skin Skin exam: Present warm and dry Medical Decision Making Jose Alberto Inquiry Pt receiving controlled substance: No Vital Signs: 09/22/23 19:09 09/22/23 20:00 Temperature 97.6 F Temperature Source Oral Pulse Rate 95 H Pulse Rate [Radial] 96 H Respiratory Rate 12 16 Blood Pressure [Right Arm] 160/96 H Blood Pressure Mean [Right Arm] 117 Blood Pressure Source [Right Arm] Automatic Cuff Blood Pressure Position [Right Arm] Supine 02 Sat by Pulse Oximetry 94 L 97 Oxygen Delivery Method Room Air Room Air Lab Data Lab Results 09/22/23 19:07: SARS-CoV-2 (PCR) Not detected, Influenza A Untype (PCR) Not detected, Influenza Type B (PCR) Not detected 09/22/23 19:49: WBC 6.9, RBC 4.79, Hgb 13.3 L, Hct 42.1, MCV 87.8, MCH 27.8, MCHC 31.6 L, RDW 17.7 H, Plt Count 374, MPV 9.7, Neut % (Auto) 67.4, Lymph % (Auto) 20.4, [place] % (Auto) 9.6 H, Eos % (Auto) 1.9, Baso % (Auto) 0.7, Neut # (Auto) 4.6, Lymph # (Auto) 1.4, [place] # (Auto) 0.7, Eos # (Auto) 0.1, Baso # (Auto) 0.1, Sodium 137, Potassium 5.0, Chloride 102, Carbon Dioxide 26, Anion Gap 14.0, BUN 51 H, Creatinine 4.70 H, Estimated Creat Clear 27, Estimated GFR 13 L*, Est GFR ( Amer) 16 L*, Glucose 175 H, Calcium 8.7, Magnesium 2.0, Total Bilirubin 1.2, AST 37, ALT 36, Alkaline Phosphatase 142 H, Total Protein 6.8 D, Albumin 3.3 L, Globulin 3.5 H, Albumin/Globulin Ratio 0.9 L 09/22/23 19:49 09/22/23 19:49 Orders (Tests/Meds): ORDERS Category Date Time Status POCUS Point of Care (ER Only) Stat Exams 09/22/23 19:15 Completed CBC w/Auto Diff [Complete Blood Count Auto Diff] Stat Lab 09/22/23 19:49 Completed CMP [Comprehensive Metabolic Panel] Stat Lab 09/22/23 19:49 Completed MG [Magnesium] Stat Lab 09/22/23 19:49 Completed Rapid PCR Covid and Flu A/B Stat Lab 09/22/23 19:07 Completed ECG Data Tracing #1: Independently interpreted by me, rate is 95, rhythm is regular, QTc 443, no peaked T waves. Medical Decision Narrative: In summary patient is a 48-year-old male with past medical history described above who presents emergency department for evaluation of global weakness in the setting of dialysis dependent state. Patient is hemodynamically stable nontoxic-appearing upon arrival, afebrile. Differential diagnosis includes uremia, hyperkalemia, among others. Patient has no oxygen requirement or significant tachypnea to suggest critical volume overload although he does have pitting edema of his lower extremities with an unknown baseline. Workup will be conducted with hematologic labs, viral swab. Workup reviewed by me, hematologic labs are nonactionable, no significant leukocytosis, no acute anemia, CKD is demonstrated in the setting of dialysis dependent state, no critical electrolyte abnormalities, no critical uremia. On repeat evaluation patient was well-appearing, ambulatory bedside and is appropriate for discharge to follow-up for dialysis tomorrow morning. Procedure: Procedure performed was ultrasound-guided IV placement. Procedure performed by Bob Fuentes. Using real-time ultrasound guidance the right basilic vein was entered with a long peripheral 18-gauge IV. Vessel cannulated was patent. Images were not saved to permanent archive. Patient tolerated procedure well. There were no immediate complications. Procedures Miscellaneous Procedure Procedure Performed: Indication: Weakness Identified cardiac views: Cardiac parasternal long axis and parasternal short axis Findings: Cardiac activity present, ejection fraction grossly decreased, thickened interventricular septum, no large pericardial effusion Impression: -From above Images were to permanent archive The study was technically adequate CPT: 07312 This study was performed by me, and I personally interpreted all images/videos. Based on my clinical judgement, these images were [adequate/inadequate] and [did/did not] necessitate further imaging. Critical Care Critical Care Time Critical Care Time: No
[2023-09-22 19:22] LABS: Coronavirus 19, PCR Not Detected (NotDetected); Influenza A, PCR Not Detected (NotDetected); Influenza B, PCR Not Detected (NotDetected)
[2023-09-22 19:56] LABS: Basophils # 0.1 K/mm3 (0-0.2); Basophils % 0.7 % (0.1-2.0); Eosinophils # 0.1 K/mm3 (0.0-0.4); Eosinophils % 1.9 % (0.1-12.0); Hematocrit 42.1 % (42.0-52.0); Hemoglobin 13.3 g/dL (14.1-18.0); Lymphocytes # 1.4 K/mm3 (0.7-4.5); Lymphocytes % 20.4 % (10-50); Mean Corpuscular HGB Conc 31.6 g/dL (31.8-35.4); Mean Corpuscular Hemoglobin 27.8 pg (27.0-31.2); Mean Corpuscular Volume 87.8 fl (80-94); Mean Platelet Volume 9.7 fl (7.4-10.4); Monocytes # 0.7 K/mm3 (0.1-1.0); Monocytes % 9.6 % (1.7-9.3); Neutrophils # 4.6 K/mm3 (1.8-7.8); Neutrophils % 67.4 % (37.0-80.0); Platelet Count 374 K/mm3 (142-424); Red Blood Count 4.79 M/mm3 (4.60-6.20); Red Cell Distribution Width 17.7 % (11.5-17.5); White Blood Count 6.9 K/mm3 (4.8-10.8)
[2023-09-22 20:00] VITALS: PULSE 95; RESP 16; O2SAT 97
[2023-09-22 20:10] LABS: Chloride 102 mmol/L (98-107)
[2023-09-22 20:13] LABS: Alanine Aminotransferase 36 U/L (12-78); Aspartate Amino Transferase 37 U/L (17-59); Blood Urea Nitrogen 51 mg/dl (9-20); Creatinine Clearance Estimated 27 mL/min (50-200); Estimated Glomerular Filt Rate 13 ml/min (>60); GFR (African American) 16 ML/MIN (>60)
[2023-09-22 20:14] LABS: Albumin Level 3.3 g/dl (3.5-5.0); Albumin/Globulin Ratio 0.9 (1.1-1.8); Alkaline Phosphatase 142 U/L (38-126); Bilirubin,Total 1.2 mg/dl (0.2-1.3); Calcium 8.7 mg/dl (8.4-10.2); Carbon Dioxide 26 mmol/L (22.0-30.0); Globulin 3.5 g/dL (1.3-3.2); Glucose 175 mg/dl (74-100); Total Protein,Serum 6.8 g/dl (6.3-8.2)
[2023-09-22 20:27] LABS: Sodium 137 mmol/L (136-145)
[2023-09-22 21:08] VITALS: BP 171/108; PULSE 95; RESP 12; TEMP 36.4
[2023-09-22] MEDS: ONDANSETRON 4MG/2ML VIAL 4 MG IV (21:08)
== END 2023-09-22 21:18 | disposition home or self-care (01) ==
PROVIDERS: Emergency Provider Emergency Medicine; PCP Family Medicine
DX: R53.1 Weakness (principal); R39.2 Extrarenal uremia; R11.0 Nausea; E11.22 Type 2 diabetes mellitus with diabetic chronic kidney disease; N18.9 Chronic kidney disease, unspecified; I50.9 Heart failure, unspecified; I25.10 Atherosclerotic heart disease of native coronary artery without angina pectoris
CPT/HCPCS: 80053; 83735; 85025; 87636; 93005; 96374; 99285; J2405

== ENCOUNTER 2023-12-07 10:22 | Outpatient (CLI) | payer MEDICARE, SELFPAY ==
[2023-12-07 10:52] LABS: Basophils # 0.2 K/mm3 (0-0.2); Basophils % 1.7 % (0.1-2.0); Eosinophils # 0.8 K/mm3 (0.0-0.4); Eosinophils % 9.4 % (0.1-12.0); Hematocrit 36.8 % (42.0-52.0); Hemoglobin 11.3 g/dL (14.1-18.0); Lymphocytes # 1.5 K/mm3 (0.7-4.5); Lymphocytes % 17.4 % (10-50); Mean Corpuscular HGB Conc 30.5 g/dL (31.8-35.4); Mean Corpuscular Volume 91.5 fl (80-94); Mean Platelet Volume 8.8 fl (7.4-10.4); Monocytes # 0.5 K/mm3 (0.1-1.0); Monocytes % 5.7 % (1.7-9.3); Neutrophils # 5.8 K/mm3 (1.8-7.8); Neutrophils % 65.8 % (37.0-80.0); Platelet Count 467 K/mm3 (142-424); Red Blood Count 4.03 M/mm3 (4.60-6.20); Red Cell Distribution Width 17.3 % (11.5-17.5); White Blood Count 8.8 K/mm3 (4.8-10.8)
[2023-12-07 11:25] LABS: Anion Gap 12.3 mEq/L (5-15); Blood Urea Nitrogen 22 mg/dl (9-20); Calcium 8.8 mg/dl (8.4-10.2); Carbon Dioxide 28 mmol/L (22.0-30.0); Chloride 100 mmol/L (98-107); Estimated Glomerular Filt Rate 23 ml/min (>60); GFR (African American) 28 ML/MIN (>60); Glucose 190 mg/dl (74-100); Potassium 5.3 mmoL/L (3.5-5.1); Sodium 135 mmol/L (136-145)
[2023-12-07 11:57] LABS: INR 1.07 (0.9-1.1); Prothrombin Time 11.5 seconds (10.1-12.5)
== END 2023-12-07 23:59 | disposition home or self-care (01) ==
PROVIDERS: PCP Family Medicine; Visit Provider Surgery Vascular Surgery
DX: I70.221 Atherosclerosis of native arteries of extremities with rest pain, right leg (principal); I10 Essential (primary) hypertension; E11.9 Type 2 diabetes mellitus without complications; Z79.4 Long term (current) use of insulin; Z91.81 History of falling
CPT/HCPCS: 36415; 80048; 85025; 85610